=== PATIENT | male | born 1945 | race Two or more races ===

== ENCOUNTER 2019-09-04 16:56 | Inpatient (IN) | payer OTHER, MEDICAID ==
--- NOTE | 2019-09-03 22:00 | NUR ---
RN NOTES ADMITTED A PATIENT FROM ER AOX2 IN ROOM AIR. SATURATION 98%. AFEBRILE. PT NODS MOST OF THE QUESTION DIAGNOSED WITH DKA. TELE MONITOR PLACED WITH SR W BBB AND PVC'S. RECEIVED WITH INSULIN DRIP RUNNING @ 8 U/HR TITRATED ORDERED. SKIN CHECKED DONE NOTED WITH COLD AND MOTTLED SKIN. IV SITE ON RIGHT HAND G 22. BLAZE G 18 RUNNING W/ INSULIN AND NS @ 125 ML/HR ALL INTACT AND PATENT. KEPT PT CLEAN AND DRY. CALL LIGHT INSTRUCTION PROVIDED DEMONSTRATED UNDERSTANDING. WILL CONT. TO MONITOR.
[~2019-09-04] VITALS: Ht 170.2 cm; Wt 97.1 kg
[~2019-09-04 16:56] MED LIST: DOXA8TAB2 PO; GLIP10TA3 PO; LISI-603 PO; METF-441 PO; SIMV20TA2 PO
--- NOTE | 2019-09-04 16:56 | NUR ---
PT BIBRA FROM HOME C/O HIGH BLOOD SUGAR MORE THAN 500MG/DL, PT IS AAOX1, NOT IN RESPIRATORY DISTRESS, HOOKED TO HIDE INSPECTOR, KEPT RESTED AND COMFORTABLE, WILL CONTINUE TO MONITOR.
--- NOTE | 2019-09-04 17:05 | NUR ---
SEEN AND EXAMINED BY .
--- NOTE | 2019-09-04 17:10 | NUR ---
RT AT BEDSIDE FOR ABG.
[2019-09-04 17:21] LABS: ABG BASE EXCESS -22.7 mmol/L; ABG OXYGEN SATURATION 96.9 % (92.0-98.5); ABG PCO2 15.5 mmHg (35.0-45.0); ABG PH 7.094 (7.350-7.450); ABG PO2 114.5 mmHg (75.0-100.0); AaDO2 16.7 mmHg; COHb 0.3 % (0.5-1.5); MetHb 0.6 % (0.0-1.5); SITE, ABG Left Radial; VENT MODE, BG ROOM AIR
[2019-09-04] MEDS ORDERED: IV NS 0.9% 1,000 ML BAG IV ONE ×2 (17:30→18:30)
--- NOTE | 2019-09-04 17:38 | NUR ---
PAGED [facility].
--- NOTE | 2019-09-04 17:45 | NUR ---
MICHELLE MCKEON ESTABLISHED, BLOOD DRAWN AND SENT TO LAB.
[2019-09-04 17:53] LABS: BASOPHILS # (AUTO) 0.2 /CMM (0.0-0.2); BASOPHILS % (AUTO) 1.3 % (0.0-2.0); EOSINOPHILS % (AUTO) 0.2 % (0.0-6.0); HEMATOCRIT 58 % (39-51); HEMOGLOBIN 18.5 g/dL (13.5-17.5); LYMPHOCYTES # (AUTO) 0.5 /CMM (0.8-4.8); LYMPHOCYTES % (AUTO) 3.5 % (20.0-44.0); MEAN CORPUSCULAR HGB CONC 32 g/dl (31.0-36.0); MEAN CORPUSCULAR VOLUME 96 fL (80-96); MONOCYTES # (AUTO) 0.8 /CMM (0.1-1.30); MONOCYTES % (AUTO) 6.3 % (2.0-12.0); NEUTROPHILS # (AUTO) 11.6 /CMM (1.8-8.9); NEUTROPHILS % (AUTO) 88.7 % (43.0-81.0); PLATELET COUNT (AUTO) 274 /CMM (150-450); RED BLOOD CELL COUNT(AUTO) 6.05 MIL/uL (4.5-6.0); WHITE BLOOD COUNT (AUTO) 13.1 K/uL (4.3-11.0)
[2019-09-04 18:11] LABS: ALANINE AMINOTRANSFERASE 50 U/L (12-78); ALBUMIN 4.4 g/dL (3.4-5.0); ALKALINE PHOSPHATASE 111 U/L (46-116); ASPARTATE AMINOTRANSFERASE 15 U/L (15-37); BILIRUBIN,DIRECT 0.4 mg/dL (0.0-0.2); BILIRUBIN,TOTAL 1.1 mg/dL (0.2-1.0); CALCIUM, SERUM 9.3 mg/dL (8.5-10.1); CHLORIDE 95 mmol/L (98-107); CREATININE 2.2 mg/dL (0.6-1.3); POTASSIUM 5.1 mmol/L (3.5-5.1); SODIUM SERUM 134 mmol/L (136-145); UREA NITROGEN, BLOOD 56 mg/dL (7-18)
[2019-09-04 18:16] LABS: ACETAMINOPHEN 0 ug/ml (10-30); CARBON DIOXIDE 8 mmol/L (21-32); GLUCOSE 735 mg/dL (74-106); SALICYLATE 2.6 mg/dL (2.8-20.0)
[2019-09-04 18:17] LABS: ALCOHOL, BLOOD < 3 mg/dL (0-0)
[2019-09-04 18:19] LABS: SERUM AMMONIA 35 umol/L (11-32)
--- NOTE | 2019-09-04 18:19 | NUR ---
CALLED NURSING SUP FOR ICU BED.
[2019-09-04] MEDS ORDERED: INSULIN REGULAR, HUMAN 100 UNIT in IV NS 0.9% 99 ML IV PRN ×4 (18:30→19:00)
[2019-09-04 18:32] LABS: THYROID STIMULATING HORMONE 1.262 uIU/mL (0.358-3.74)
[2019-09-04] MEDS ORDERED: INSULIN REGULAR, HUMAN 100 UNIT/ML 10 ML VIAL ONE (18:32)
[2019-09-04] MEDS ORDERED: IV NS 0.9% 1,000 ML IV PRN ×3 (18:54→19:00)
[2019-09-04 18:57] LABS: APPEARANCE,URINE Clear (CLEAR); BILIRUBIN,URINE SMALL (NEGATIVE); BLOOD, URINE Small Ery/uL (NEGATIVE); COLOR,URINE Yellow (YELLOW); KETONES,URINE 40 (NEGATIVE); LEUKOCYTE ESTERASE ,URINE Negative (NEGATIVE); NITRITE, URINE Negative (NEGATIVE); PH,URINE 5.5 (5.0-8.0); PROTEIN,URINE 30 mg/dl (NEGATIVE); UGLUCOSE 500 MG/DL mg/dL (NEGATIVE); UROBILINOGEN,URINE 0.2 EU/dL (0.2)
[2019-09-04] MEDS ORDERED: ONDANSETRON HCL/PF 4 MG/2 ML VIAL IVP PRN (19:00)
[2019-09-04] MEDS ORDERED: ACETAMINOPHEN 325 MG TABLET PO PRN (19:00)
[2019-09-04] MEDS ORDERED: Z GUARD REMEDY 2 OZ OINT TP PRN (19:00)
[2019-09-04] MEDS ORDERED: MAGNESIUM HYDROXIDE 30 ML UDC PO PRN (19:00)
[2019-09-04] MEDS ORDERED: MAG HYDROX/AL HYDROX/SIMETH 30 ML UDC PO PRN (19:00)
[2019-09-04 19:13] LABS: BACTERIA,URINE Few /HPF (None Seen); SQUAMOUS EPITHELIAL CELL,UR Few /HPF (None Seen); URINE AMORPHOUS URATE Moderate /HPF (None Seen); WBC,URINE 0-2 /HPF (0-3)
--- NOTE | 2019-09-04 19:16 | NUR ---
ACCUCHECK DONE, >600, MADE DR PIMENTEL AWARE
[2019-09-04 19:26] LABS: BAND % (MANUAL) 1 % (0.0-5.0); LYMPHOCYTES % (MANUAL) 6 % (16-48); MONOCYTES % (MANUAL) 5 % (0-11.0); NEUTROPHILS % (MANUAL) 88 (42-76)
[2019-09-04] MEDS ORDERED: PIPERACILLIN /TAZOBACTAM 3.375 G in IV D5W 50 ML IV ONE ×4 (20:00)
--- NOTE | 2019-09-04 20:36 | NUR ---
REPORT GIVEN TO RADHA KLEIN FOR LARS.
[2019-09-04] MEDS ORDERED: PIPERACILLIN /TAZOBACTAM 3.375 G VIAL IV ONE (20:40)
[2019-09-04 21:10] VITALS: BP 165/98
[2019-09-04 21:30] VITALS: BP 179/70
[2019-09-04 22:00] VITALS: BP 163/77
[2019-09-04] MEDS: IV NS 0.9% 1,000 ML IV SCH (22:23)
[2019-09-04 22:30] VITALS: BP 150/76
[2019-09-04] MEDS: INSULIN REGULAR, HUMAN 100 UNIT in IV NS 0.9% 99 ML IV PRN ×2 (22:37)
[2019-09-04 23:00] VITALS: BP 153/80
[2019-09-04 23:30] VITALS: BP 153/80
[2019-09-04] MEDS: BLOOD SUGAR DIAGNOSTIC 1 EACH STRIP IN SCH (23:33)
[2019-09-04 23:59] LABS: CALCIUM, SERUM 8.3 mg/dL (8.5-10.1); CARBON DIOXIDE 12 mmol/L (21-32); CHLORIDE 105 mmol/L (98-107); SODIUM SERUM 142 mmol/L (136-145); UREA NITROGEN, BLOOD 55 mg/dL (7-18)
[2019-09-05] VITALS (33 sets, daily range): BP systolic 121–175; BP diastolic 55–137
[2019-09-05 00:02] LABS: GLUCOSE 436 mg/dL (74-106)
[2019-09-05] MEDS: BLOOD SUGAR DIAGNOSTIC 1 EACH STRIP IN SCH ×24 (00:18→23:09)
[2019-09-05] MEDS ORDERED: INSULIN REGULAR, HUMAN 100 UNIT/ML 3 ML VIAL ONE (00:25)
[2019-09-05 01:39] LABS: CALCIUM, SERUM 7.9 mg/dL (8.5-10.1); CARBON DIOXIDE 12 mmol/L (21-32); CHLORIDE 111 mmol/L (98-107); CREATININE 1.7 mg/dL (0.6-1.3); GLUCOSE 302 mg/dL (74-106); POTASSIUM 4.3 mmol/L (3.5-5.1); SODIUM SERUM 146 mmol/L (136-145); UREA NITROGEN, BLOOD 50 mg/dL (7-18)
[2019-09-05 05:13] LABS: BASOPHILS % (AUTO) 0.1 % (0.0-2.0); HEMATOCRIT 49 % (39-51); HEMOGLOBIN 16.1 g/dL (13.5-17.5); LYMPHOCYTES # (AUTO) 0.4 /CMM (0.8-4.8); LYMPHOCYTES % (AUTO) 3.9 % (20.0-44.0); MEAN CORPUSCULAR HGB CONC 33 g/dl (31.0-36.0); MEAN CORPUSCULAR VOLUME 91 fL (80-96); MONOCYTES # (AUTO) 1.1 /CMM (0.1-1.30); MONOCYTES % (AUTO) 9.6 % (2.0-12.0); NEUTROPHILS # (AUTO) 9.7 /CMM (1.8-8.9); NEUTROPHILS % (AUTO) 86.4 % (43.0-81.0); PLATELET COUNT (AUTO) 190 /CMM (150-450); RED BLOOD CELL COUNT(AUTO) 5.35 MIL/uL (4.5-6.0); WHITE BLOOD COUNT (AUTO) 11.2 K/uL (4.3-11.0)
[2019-09-05 05:34] LABS: CARBON DIOXIDE 19 mmol/L (21-32); CHLORIDE 113 mmol/L (98-107); CREATININE 1.6 mg/dL (0.6-1.3); GLUCOSE 246 mg/dL (74-106); MAGNESIUM 2.9 mg/dL (1.8-2.4); PHOSPHORUS 1.3 mg/dL (2.5-4.9); POTASSIUM 4.3 mmol/L (3.5-5.1); SODIUM SERUM 148 mmol/L (136-145); UREA NITROGEN, BLOOD 43 mg/dL (7-18)
[2019-09-05 05:44] LABS: CHOLESTEROL 276 mg/dL (<200); HDL CHOLESTEROL 35 mg/dL (40-60); LDL 172 mg/dL (0-99); TRIGLYCERIDES 341 mg/dL (30-150)
[2019-09-05] MEDS: IV NS 0.9% 1,000 ML IV SCH ×2 (06:05→13:21)
[2019-09-05] MEDS: INSULIN REGULAR, HUMAN 100 UNIT in IV NS 0.9% 99 ML IV PRN ×2 (06:26)
--- NOTE | 2019-09-05 07:10 | NUR ---
RN NOTES PT ASLEEP WELL MORE ALERT THAN LAST NIGHT. NO SOB OR RESP DISTRESS. AFEBRILE. VSS WITHOUT PRESSOR. CONTINUE MONITOR BS Q1H INSULIN DRIP TITRATED ORDERED. NO SIGNIFICANT CHANGE OF CONDITION THROUGHOUT THE SHIFT. WILL ENDORSED CONTINUITY OF CARE.
--- NOTE | 2019-09-05 08:00 | NUR ---
ICU/RN AM SHIFT OPENING NOTES Received pt awake in bed, patient A/O x 2, Serbian and Uzbek, denies any symptoms, no s/s of hyperglycemia. On room air saturating @ 99%, respirations even & unlabored, lung sounds clear. On tele monitoring, SR with BBB with occasional PVCs, HR 96. Pt with on going insulin drip @ 4 units/hr and NS @ 125cc/hr, IV site, flushed patent, no S/S of infection. De La Torre catheter intact with yellow urine output. Pt is comfortable, plan of care explained to patient, verbalized understanding. CL within reached and safety maintained. On going monitoring.
--- NOTE | 2019-09-05 12:00 | NUR ---
ICU/RN NOON ROUNDS NO CHANGE OF CONDITION. MONITORING CONTINUED.
[2019-09-05] MEDS ORDERED: NEUTRA PHOS 1 POWD.PACKET PO ONE (14:00)
--- NOTE | 2019-09-05 19:00 | NUR ---
ICU/RN AM SHIFT CLOSING NOTES ALL NEEDS MET. NO ACUTE CHANGE OF CONDITION. CONTINUING INSULIN DRIP, AT 4U/HR. PT ENDORSED TO PM NURSE TO CONTINUE CARE. CL WITHIN REACHED AND SAFETY MAINTAINED.
--- NOTE | 2019-09-05 19:40 | NUR ---
RN NOTES PATIENT VOMITED BEFORE CHANGE OF SHIFT. NURSE AT BEDSIDE, PER PREVIOUS SHIFT PATIENT DRINK A LOT OF FLUIDS. PT IS AOX 2 WITH LETHARGY. AFEBRILE. SR WITH BBB AND OCCASIONAL PVC'S. NO ACUTE RESPIRATORY DISTRESS. IV SITE ON DENISE MIDLINE RUNNING WITH INSULIN DRIP @ 5 U/HR TITRATED ORDERED 1.2 NS @ 100 ML /HR STARTED ORDERED/ PATIENT HAS BATES CATH OFF FROM THE FLOOR WITH YELLOW CLOUDY URINE. CALL LIGHT KETP WITHIN EASY REACH. TURNED AND REPOSITIONED FOR SKIN SAFETY. WILL CONTINUE TO MONITOR.
[2019-09-05] MEDS: IV 1/2NS 1000 ML 1,000 ML IV PRN (20:27)
[2019-09-05] MEDS ORDERED: FUROSEMIDE 20 MG/2 ML VIAL IV ONE (20:30)
[2019-09-06] VITALS (14 sets, daily range): BP systolic 126–162; BP diastolic 54–76
[2019-09-06] MEDS: BLOOD SUGAR DIAGNOSTIC 1 EACH STRIP IN SCH ×8 (00:07→21:36)
[2019-09-06 00:21] LABS: CARBON DIOXIDE 24 mmol/L (21-32); CHLORIDE 113 mmol/L (98-107); CREATININE 1.2 mg/dL (0.6-1.3); GLUCOSE 223 mg/dL (74-106); MAGNESIUM 2.6 mg/dL (1.8-2.4); PHOSPHORUS 1.9 mg/dL (2.5-4.9); POTASSIUM 3.1 mmol/L (3.5-5.1); SODIUM SERUM 149 mmol/L (136-145); UREA NITROGEN, BLOOD 23 mg/dL (7-18)
[2019-09-06] MEDS ORDERED: POTASSIUM CHLORIDE 20 MEQ TAB.PRT.SR PO ONE (01:00)
[2019-09-06] MEDS ORDERED: INSULIN GLARGINE, 100 UNIT/ML CARTRIDGE SQ SCH (01:00)
[2019-09-06] MEDS ORDERED: DEXTROSE 50%-WATER 50 ML DISP.SYRIN IV PRN (01:00)
[2019-09-06] MEDS ORDERED: K PHOS NEUTRAL 250 MG TABLET PO ONE (01:00)
[2019-09-06] MEDS ORDERED: INSULIN GLARGINE, 100 UNIT/ML CARTRIDGE SQ ONE ×2 (01:32→08:00)
[2019-09-06] MEDS ORDERED: INSULIN REGULAR, HUMAN 100 UNIT/ML 3 ML VIAL ONE (01:33)
[2019-09-06] MEDS: INSULIN REGULAR, HUMAN 100 UNIT/ML 3 ML VIAL SQ PRN ×5 (02:19→21:41)
[2019-09-06 05:18] LABS: CALCIUM, SERUM 7.7 mg/dL (8.5-10.1); CREATININE 1.1 mg/dL (0.6-1.3); PHOSPHORUS 2.6 mg/dL (2.5-4.9); POTASSIUM 3.7 mmol/L (3.5-5.1)
[2019-09-06] MEDS: IV 1/2NS 1000 ML 1,000 ML IV PRN ×2 (05:37→15:45)
--- NOTE | 2019-09-06 06:50 | NUR ---
RN NOTES PT REMAINED STABLE. NO SIGNIFICANT CHANGES THROUGHOUT THE SHIFT. AFEBRILE. SR ON TELE MONITOR. VSS. INCONTINENT CARE RENDERED. CONTINUE TO MONITOR BLOOD SUGAR ORDERED. INSULIN PER SLIDING SCALE ADMINISTERED ORDERED. KEPT PT CLEAN AND DRY. ALL DUE MEDICINE TOLERATED WELL. WILL ENDORSED CONTINUITY OF CARE TO AM NURSE.
--- NOTE | 2019-09-06 07:20 | NUR ---
ICU/RN NOTES RECEIVED PATIENT IN BED AWAKE, ALERT AND ABLE TO MAKE NEEDS KNOWN. NO PAIN OR ACUTE DISTRESS AT THIS TIME. RESPIRATION EVEN AND UNLABORED. SKIN IS DRY WARM TO TOUCH. IV ACCESS INTACT AN PATENT. FLUSHING WELL. NO S/S OF INFECTION OR INFILTRATION. ALL NEEDS ANTICIPATED. CALL LIGHT WITHIN REACHED. BED LOCKED AND IN LOWEST POSITION. SAFETY MAINTAINED. WILL CONTINUE TO MONITOR CLOSELY.
--- NOTE | 2019-09-06 07:59 | NUR ---
WOUND CARE CONSULT: PT PRESENTS WITH BILATERAL LOWER LEG REDNESS WITH LESIONS/DISCOLORATION TO LOWER LEGS, PRESENT ON ADMISSION. RECOMMEND DPM CONSULT. DR OSUNA NOTIFIED OF CONSULT REQUEST. RECOMMENDATIONS MADE FOR SKIN PROTECTION AND DISCUSSED WITH NURSING STAFF. JANA ARAYA NOTED. WILL SEE PRN. CURRENT CHIRAG SCORE IS 14. Addendum: 09/06/19 at 0801 by ANJUM GALICIA WNDNU Amended: Links added.
[2019-09-06 08:54] LABS: CALCIUM, SERUM 7.8 mg/dL (8.5-10.1); CREATININE 1.2 mg/dL (0.6-1.3); POTASSIUM 3.7 mmol/L (3.5-5.1)
[2019-09-06] MEDS: AMLODIPINE BESYLATE 5 MG TABLET PO SCH (11:02)
[2019-09-06 12:45] LABS: CALCIUM, SERUM 7.9 mg/dL (8.5-10.1); POTASSIUM 3.4 mmol/L (3.5-5.1)
[2019-09-06 16:56] LABS: CALCIUM, SERUM 8.6 mg/dL (8.5-10.1); POTASSIUM 3.3 mmol/L (3.5-5.1)
--- NOTE | 2019-09-06 18:47 | NUR ---
MS/RN CLOSING NOTES PATIENT CONTINUES TO REMAIN IN STABLE CONDITION THROUGHOUT THE SHIFT. PROVIDED COMFORT AND SAFETY. PATIENT ABLE TO TOLERATE MEALS AND MEDS WELL. NO ACUTE DISTRESS AT THIS TIME. RESPIRATION EVEN AND UNLABORED. SKIN IS DRY WARM TO TOUCH. ALL NEEDS ANTICIPATED. CALL LIGHT WITHIN REACHED. BED LOCKED AND IN LOWEST POSITION. SAFETY MAINTAINED. WILL CONTINUE TO MONITOR CLOSELY. ENDORSED TO PM NURSE FOR LARS.
--- NOTE | 2019-09-06 19:20 | NUR ---
MS RN: RECEIVED PATIENT Patient stood up at bedside, appears confused. Reoriented and assisted back to bed. Japanese speaking, speaks and understand some Nepalese. Reminders to use call light for assistance, verbalized understanding. IVF infusing, De La Torre cath to gravity. Fall precaution maintained.
--- NOTE | 2019-09-06 21:15 | NUR ---
MS RN: BP Elevated BP 162/65, patient denies headache, no c/o pain. Notified Dr. Melendez with no new orders at this time. Will cont to monitor patient, fall precaution maintained.
[2019-09-06] MEDS: HEPARIN SODIUM, PORCINE 5000 UNITS/1 ML VIAL SQ SCH (21:33)
[2019-09-06 22:47] LABS: CALCIUM, SERUM 8.1 mg/dL (8.5-10.1); CREATININE 0.9 mg/dL (0.6-1.3); POTASSIUM 3.4 mmol/L (3.5-5.1)
[2019-09-07] MEDS ORDERED: POTASSIUM CHLORIDE 20 MEQ TAB.PRT.SR PO ONE ×2 (00:30→09:00)
[2019-09-07] MEDS: BLOOD SUGAR DIAGNOSTIC 1 EACH STRIP IN SCH ×6 (01:40→21:52)
[2019-09-07] MEDS: INSULIN REGULAR, HUMAN 100 UNIT/ML 3 ML VIAL SQ PRN ×6 (01:43→21:48)
--- NOTE | 2019-09-07 03:07 | NUR ---
MS RN: BLOOD IN THE URINE De La Torre cath to gravity, blood in the urine with clots. Patient denies pain. H/H 16. Plt. [address] Melendez with new order CBC in am.
[2019-09-07] MEDS: IV 1/2NS 1000 ML 1,000 ML IV PRN (03:55)
[2019-09-07 04:00] VITALS: BP 135/73
--- NOTE | 2019-09-07 06:11 | NUR ---
MS RN: END OF SHIFT REPORT Patient in bed, stable on room air. IVF infusing, good appetite. Had BM this shift, zaman cath to gravity, bag off the floor. Hematuria, is aware. CBC today. Accu check q4H with insulin SS. Fall precaution maintained.
[2019-09-07 06:46] LABS: BASOPHILS % (AUTO) 0.4 % (0.0-2.0); EOSINOPHILS % (AUTO) 1.1 % (0.0-6.0); HEMATOCRIT 41 % (39-51); HEMOGLOBIN 13.9 g/dL (13.5-17.5); LYMPHOCYTES % (AUTO) 20.5 % (20.0-44.0); MEAN CORPUSCULAR HGB CONC 34 g/dl (31.0-36.0); MEAN CORPUSCULAR VOLUME 90 fL (80-96); MONOCYTES # (AUTO) 0.5 /CMM (0.1-1.30); MONOCYTES % (AUTO) 11.1 % (2.0-12.0); NEUTROPHILS # (AUTO) 3.3 /CMM (1.8-8.9); NEUTROPHILS % (AUTO) 66.9 % (43.0-81.0); PLATELET COUNT (AUTO) 98 /CMM (150-450); RED BLOOD CELL COUNT(AUTO) 4.57 MIL/uL (4.5-6.0); WHITE BLOOD COUNT (AUTO) 4.9 K/uL (4.3-11.0)
[2019-09-07 07:16] LABS: EOSINOPHILS % (MANUAL) 2 % (0-4); LYMPHOCYTES % (MANUAL) 20 % (16-48); MONOCYTES % (MANUAL) 6 % (0-11.0); NEUTROPHILS % (MANUAL) 72 (42-76)
--- NOTE | 2019-09-07 07:30 | NUR ---
RN OPENING NOTE: RECEIVED PATIENT IN BED THIS MORNING. PATIENT IS ALERT X1, CONFUSED. SAMI SPEAKING BUT UNDERSTANDS CITIZEN OF [place] AND ABLE TO RESPOND. NO SIGNS OF RESPIRATORY DISTRESS NOTED. NO ACUTE DISTRESS NOTED. DENISE MIDLINE, #22 L HAND #18 BLAZE, FLUSHES WELL, C/D/I, NO SIGNS OF COMPLICATIONS NOTED. BATES, DRAINING WELL, BLOOD TINGE NOTED. PATIENT AMBULATORY WITH ASSIST. NO C/O PAIN. SAFETY MEASURES IMPLEMENTED, BED IN LOWEST POSITION, LOCKED, SIDE RAILS UP X3, CALL LIGHT WITHIN REACH. WILL CONTINUE TO MONITOR PATIENT FOR CHANGES.
[2019-09-07 08:00] VITALS: BP 142/73
[2019-09-07] MEDS: HEPARIN SODIUM, PORCINE 5000 UNITS/1 ML VIAL SQ SCH ×2 (08:32→21:46)
[2019-09-07] MEDS: AMLODIPINE BESYLATE 5 MG TABLET PO SCH (08:33)
[2019-09-07] MEDS: SILVER SULFADIAZINE CREAM 25 GM TUBE TP SCH (08:59)
--- NOTE | 2019-09-07 09:39 | NUR ---
CONTACTED FOR OVER THE PHONE CONSENT FOR CTA BRAIN, NO RESPONSE, LEFT VM, AWAITING CALL BACK Addendum: 09/07/19 at 1259 by JESSI LEHMAN RN OVER THE PHONE CONSENT RECEIVED FROM SISTER (COSME HALE) [phone], SECOND WITNESS FOR VERIFICATION, ERNIE VU.
--- NOTE | 2019-09-07 15:18 | NUR ---
PATIENT CONFUSED UNABLE TO USE CALL LIGHT,FORGETFUL,FALL RISK ,DR. MITCHELL NOTIFIED OBTAINED ORDER FOR SITTER,NURSING SUP MADE AWARE.
[2019-09-07 16:00] VITALS: BP 147/72
[2019-09-07] MEDS ORDERED: IV NS 0.9% 250 ML IV ONE (18:20)
[2019-09-07] MEDS ORDERED: IOHEXOL-350 100 ML VIAL IV ONE (18:20)
--- NOTE | 2019-09-07 19:15 | NUR ---
MS RN OPENING NOTE RECEIVED REPORT ON PATIENT, PATIENT NOT IN ROOM AT THE MOMENT PATIENT CURRENTLY GETTING CT.
--- NOTE | 2019-09-07 19:28 | NUR ---
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 READ BACK AND NOTED. WILL CALL PRIMARY MD.
--- NOTE | 2019-09-07 19:30 | NUR ---
MS RN OPENING NOTE RECEIVED PATIENT IN BED. A/O X1, PER REPORT PATIENT IS CONFUSED. TOLERATING ROOM AIR. RESPIRATIONS ARE EVEN AND UNLABORED. NO S/S SOB NOTED. DENIES PAIN AT THIS TIME. IN NO APPARENT DISTRESS. IV ACCESS IN DENISE MIDLINE, BLAZE #18, AND RIGHT HAND #22 ALL PATENT AN DSALINE LOCKED. PATIENT HAS A 1:1 SITTER AT BEDSIDE. BATES CATHETER IS PRESENT, DRAINING TO GAVITY, URINE IS YELLOW AND CLEAR. BED IS LOW AN DLOCKED, HOB IN SEMI FOWLERS, SIDE RAILS UP X2, BED ALARM ON. WILL CONTINUE TO MONITOR.
--- NOTE | 2019-09-07 19:50 | NUR ---
MS RN NOTE CALLED DR. DE GUZMAN OFFICE TO REPORT A CRITICAL FINDING IN THE CT. AWAITING CALL BACK.
--- NOTE | 2019-09-07 19:57 | NUR ---
MS RN NOTE DR. MITCHELL RETURNED CALLED. NO VERBAL ORDERS AT THIS TIME.
[2019-09-07 20:00] VITALS: BP 143/75
--- NOTE | 2019-09-07 20:20 | NUR ---
MS RN NOTE RADIOLOGY CALLED ABOUT A STAT ORDER DR. MITCHELL PLACED. CALLED DR. MITCHELL FOR CONFIRMATION. HE WOULD LIKE TO GET A CT OF THE HEAT AND MISTAKEN PUT CTA. WILL CALL RADIOLOGY TO INFORM THEM.
--- NOTE | 2019-09-07 20:29 | NUR ---
RN CLOSING NOTE: GAVE REPORT TO SANITARY LANDFILL SUPERVISOR RN FOR CONTINUITY OF CARE. PATIENT WAS NOT IN THE ROOM AT THE MOMENT D/T BEING SENT OUT FOR CT OF BRAIN. ONCE PATIENT GETS BACK TO UNIT, NURSE WILL CONTINUE CARE.
--- NOTE | 2019-09-07 21:08 | NUR ---
MS RN NOTE MEHREEN FROM RADIOLOGY CAME TO ASK FOR DR. DE GUZMAN NUMBER. OFFERED FOR THE RADIOLOGIST TO SPEAK ABOUT REPORT FOR THE CODE STROKE D/T HEAD CT WITH AND WITHOUT CONTRACT COMPLETED AN HOUR AND A HALF BEFORE ORDERING NEW TEST AND REPORT DOES NOT STATE FINDINGS OF TEST WITHOUT CONTRAST. MEHREEN CONFIRMED WITH ME THAT DR. MITCHELL AND RADIOLOGIST SPOKE AND DR. MITCHELL WOULD LIKE TO CANCEL THE ORDER. MEHREEN STATED SHE WILL DC ORDER.
--- NOTE | 2019-09-07 21:20 | NUR ---
MS RN NOTE SPOKE WITH PATIENT S SISTER JANES. SHE WANTED AN UPDATE AND INFORMATION ABOUT CTA HEAD.
[2019-09-08] MEDS: BLOOD SUGAR DIAGNOSTIC 1 EACH STRIP IN SCH ×4 (00:29→13:32)
[2019-09-08] MEDS: INSULIN REGULAR, HUMAN 100 UNIT/ML 3 ML VIAL SQ PRN ×3 (00:33→13:35)
--- NOTE | 2019-09-08 04:36 | NUR ---
MS RN NOTE RECEIVED CRITICAL LAB FROM PAULINE FOR BLOOD CULTURE SHOWING YEAST CELLS. WILL CALL
--- NOTE | 2019-09-08 04:44 | NUR ---
MS RN NOTE CALLED [facility] TO REACH MD. AWAITING HIS CALL.
--- NOTE | 2019-09-08 04:55 | NUR ---
MS RN NOTE SPOKE WITH DR. TYE BEARD. REPORTED CRITICAL LAB FOR BLOOS CULTURE SHOWING YEAST CELLS, PATIENT IS NOT ON ANTIBIOTICS. DR ASKED IF THE PATIENT CURRENTLY HAS TEMPERATURE AND HIGH WBC. PATIENT DOES NOT HAVE A TEMPERATURE AND WBC IS 4.9. MD ORDERED TO ENDORSE TO AM MD TO HANDLE, ORDER READ BACK, NOTED, WILL CARRY OUT.
--- NOTE | 2019-09-08 06:04 | NUR ---
MS RN CLOSING NOTE PATIENT IN BED. A/O X1, HAS EPISODES OF CONFUSION. TOLERATING ROOM AIR. RESPIRATIONS ARE EVEN AND UNLABORED. NO SOB NOTED. NO C/O PAIN THROUGHOUT SHIFT. NO DISTRESS NOTED. IV ACCESS MAINTAINED IN DENISE MIDLINE, BLAZE #18, AND RIGHT HAND #22 ALL PATENT AND SALINE LOCKED. 1:1 SITTER REMAINS AT BEDSIDE. BATES CATHETER IS MAINTAINED, DRAINING TO GRAVITY, URINE IS YELLOW AND CLEAR, OUTPUT 2500ML. NEURO CHECK CONDUCTED, PATIENT IS A/O X2, ABLE TO MOVE EXTREMITIES WELL. BED IS LOW AND LOCKED, HOB IN SEMI FOWLERS, SIDE RAILS UP X2, BED ALARM ON. WILL ENDORSE TO NEXT SHIFT.
--- NOTE | 2019-09-08 07:10 | NUR ---
RN OPENING NOTE: RECEIVED PATIENT IN BED THIS MORNING. PATIENT IS ALERT X1, CONFUSED. SETS[place]NA SPEAKING BUT UNDERSTANDS [place] AND ABLE TO RESPOND. NO SIGNS OF RESPIRATORY DISTRESS NOTED. NO ACUTE DISTRESS NOTED. DENISE MIDLINE, #22 L HAND #18 BLAZE, FLUSHES WELL, C/D/I, NO SIGNS OF COMPLICATIONS NOTED. BATES, DRAINING WELL, BLOOD TINGE NOTED. PATIENT AMBULATORY WITH ASSIST. NO C/O PAIN. PATIENT IS ON 1:1. SAFETY MEASURES IMPLEMENTED, BED IN LOWEST POSITION, LOCKED, SIDE RAILS UP X3, CALL LIGHT WITHIN REACH. WILL CONTINUE TO MONITOR PATIENT FOR CHANGES.
[2019-09-08 07:11] LABS: BASOPHILS % (AUTO) 0.5 % (0.0-2.0); EOSINOPHILS % (AUTO) 3.8 % (0.0-6.0); HEMATOCRIT 42 % (39-51); HEMOGLOBIN 14.1 g/dL (13.5-17.5); LYMPHOCYTES # (AUTO) 0.9 /CMM (0.8-4.8); LYMPHOCYTES % (AUTO) 21.4 % (20.0-44.0); MEAN CORPUSCULAR HGB CONC 34 g/dl (31.0-36.0); MEAN CORPUSCULAR VOLUME 90 fL (80-96); MONOCYTES # (AUTO) 0.5 /CMM (0.1-1.30); MONOCYTES % (AUTO) 10.3 % (2.0-12.0); NEUTROPHILS # (AUTO) 2.8 /CMM (1.8-8.9); PLATELET COUNT (AUTO) 102 /CMM (150-450); RED BLOOD CELL COUNT(AUTO) 4.68 MIL/uL (4.5-6.0); WHITE BLOOD COUNT (AUTO) 4.4 K/uL (4.3-11.0)
[2019-09-08 08:00] VITALS: BP 130/65
[2019-09-08 08:00] LABS: CALCIUM, SERUM 8.3 mg/dL (8.5-10.1); CARBON DIOXIDE 33 mmol/L (21-32); CHLORIDE 102 mmol/L (98-107); CREATININE 0.8 mg/dL (0.6-1.3); GLUCOSE 142 mg/dL (74-106); SODIUM SERUM 141 mmol/L (136-145); UREA NITROGEN, BLOOD 8 mg/dL (7-18)
[2019-09-08 08:16] LABS: POTASSIUM 2.8 mmol/L (3.5-5.1)
[2019-09-08] MEDS ORDERED: AMLODIPINE BESYLATE 5 MG TABLET PO SCH (09:00)
[2019-09-08] MEDS ORDERED: POTASSIUM CHLORIDE 20 MEQ TAB.PRT.SR PO ONE (09:00)
[2019-09-08] MEDS: HEPARIN SODIUM, PORCINE 5000 UNITS/1 ML VIAL SQ SCH (09:20)
[2019-09-08] MEDS: SILVER SULFADIAZINE CREAM 25 GM TUBE TP SCH (09:25)
[2019-09-08] MEDS ORDERED: INSULIN GLARGINE, 100 UNIT/ML CARTRIDGE SQ SCH (09:30)
[2019-09-08] MEDS ORDERED: ASPIRIN EC 81 MG TABLET.DR PO SCH (09:30)
[2019-09-08] MEDS ORDERED: ATOR40TA PO (09:34)
[2019-09-08] MEDS ORDERED: INSU100V7 SQ (09:34)
[2019-09-08] MEDS ORDERED: AMLO5TAB9 PO (09:34)
[2019-09-08] MEDS ORDERED: ASPI-1152 PO (09:34)
[2019-09-08] MEDS ORDERED: INSU100V28 SQ (09:34)
[2019-09-08] MEDS ORDERED: OLANZAPINE 10 MG VIAL IM PRN (15:00)
[2019-09-08 16:47] VITALS: BP 140/78
--- NOTE | 2019-09-08 16:48 | NUR ---
EDUCATION AND TRAINING MANAGER NOTE: PATIENT DC TO [facility] TODAY. PER DC ASSESSMENT. PATIENT IS COOPERATIVE WITH PLAN OF CARE AND MEDICATION MANAGEMENT. NO ACUTE DISTRESS NOTED. NO SIGNS OF RESPIRATORY DISTRESS NOTED. NO COMPLAINTS. GAVE REPORT TO ERNIE TREJO AND WAS INSTRUCTED TO LEAVE IV ON PATIENT IN CASE OF IV ADMINISTRATION. ALSO INFORMED HER OF K+ LABS OF 2.8 AND 80MEQ OF K+ GIVEN PO. BATES CATHETER REMOVED, PATIENT HAS VOIDED. WOUND CARE PICTURES TAKEN AND PLACED IN CHART. PATIENT HAD 1 SHIRT AND 1 PAINTS THAT WE WERE UNABLE TO FIND, CN AWARE, WILL SEND TO PATIENT ONCE LOCATED. PATIENT LEFT [facility].
[2019-09-08] MEDS ORDERED: ATORVASTATIN 40 MG TABLET PO SCH (22:00)
== END 2019-09-08 16:30 | DRG 637 ==
LOC: ER 16:58 → ICU 20:15 → MEDSG1 09-06 10:06
PROVIDERS: ADMIT Nurse Practitioner Acute Care; ATTEND Internal Medicine
PROC: 05H533Z Insertion of Infusion Device into Right Subclavian Vein, Percutaneous Approach (ICD-10-PCS; principal; 2019-09-05)
DX: E11.10 Type 2 diabetes mellitus with ketoacidosis without coma (principal); N17.0 Acute kidney failure with tubular necrosis; G93.41 Metabolic encephalopathy; E87.2 Acidosis; E87.1 Hypo-osmolality and hyponatremia; Z91.14 Patient's other noncompliance with medication regimen; Z91.19 Patient's noncompliance with other medical treatment and regimen; D72.829 Elevated white blood cell count, unspecified; E66.9 Obesity, unspecified; Z68.33 Body mass index [BMI] 33.0-33.9, adult; E11.40 Type 2 diabetes mellitus with diabetic neuropathy, unspecified; S80.821A Blister (nonthermal), right lower leg, initial encounter; X58.XXXA Exposure to other specified factors, initial encounter; Y93.9 Activity, unspecified; Y92.009 Unspecified place in unspecified non-institutional (private) residence as the place of occurrence of the external cause; E86.0 Dehydration; F03.90 Unspecified dementia, unspecified severity, without behavioral disturbance, psychotic disturbance, mood disturbance, and anxiety; N18.9 Chronic kidney disease, unspecified; E11.22 Type 2 diabetes mellitus with diabetic chronic kidney disease; E78.5 Hyperlipidemia, unspecified; Z79.4 Long term (current) use of insulin; Z83.3 Family history of diabetes mellitus; Z86.73 Personal history of transient ischemic attack (TIA), and cerebral infarction without residual deficits; I12.9 Hypertensive chronic kidney disease with stage 1 through stage 4 chronic kidney disease, or unspecified chronic kidney disease
CPT/HCPCS: 36415; 36600; 70496-TC; 71045-TC; 80048-TC; 80061-TC; 80076-TC; 80305; 81000-TC; 82140-TC; 82803-TC; 82947-TC; 82962-TC; 83605-TC; 83735-TC; 84100-TC; 84443-TC; 84484-TC; 85025-TC; 85730-TC; 87040-TC; 87081-TC; 87086-TC; 97110-TC; 97116-TC; 97530-TC; G0378; G0480; J1644; J1815; J1940; J2543; J3490; J7030; J7050; J7060; Q9967

== ENCOUNTER 2019-10-24 18:53 | Inpatient (IN) | payer OTHER ==
[~2019-10-24] VITALS: Ht 167.6 cm; Wt 86.6 kg
[~2019-10-24 18:53] MED LIST changes: +AMLO5TAB9 PO; +ASPI-1152 PO; +ATOR40TA PO; -DOXA8TAB2 PO; -GLIP10TA3 PO; +INSU100V28 SQ; +INSU100V7 SQ; -LISI-603 PO; -METF-441 PO; -SIMV20TA2 PO
--- NOTE | 2019-10-24 19:10 | NUR ---
PT BIBA C/O ALTERED MENTAL STATUS PER REPORT. PT IS UNRESPONSIVE BUT RESPONSIVE TO MECHANICAL STIMULUS, SHALLOW RESPIRATIONS NOTED,SATTING AT 95% ON RA. PT CONNECTED TO THE STAIR BUILDER AND POX
[2019-10-24] MEDS ORDERED: IV NS 0.9% 1,000 ML IV ONE ×2 (19:30→21:00)
--- NOTE | 2019-10-24 19:48 | NUR ---
RT NOTE ABG taken and critical results noted. Dr kaufman notified.
[2019-10-24 19:52] LABS: BASOPHILS # (AUTO) 0.1 /CMM (0.0-0.2); EOSINOPHILS % (AUTO) 0.2 % (0.0-6.0)
[2019-10-24 19:52] LABS: ABG BASE EXCESS -27.3 mmol/L; ABG OXYGEN SATURATION 97.3 % (92.0-98.5); ABG PCO2 13.9 mmHg (35.0-45.0); ABG PH 6.959 (7.350-7.450); ABG PO2 132.5 mmHg (75.0-100.0); AaDO2 0.6 mmHg; COHb 0.3 % (0.5-1.5); MetHb 0.4 % (0.0-1.5); O2Hb 96.6 % (94.0-97.0); SITE, ABG Left Radial; VENT MODE, BG Room Air
[2019-10-24 19:56] LABS: APPEARANCE,URINE Clear (CLEAR); BILIRUBIN,URINE Negative (NEGATIVE); BLOOD, URINE Moderate Ery/uL (NEGATIVE); COLOR,URINE Yellow (YELLOW); KETONES,URINE 80 (NEGATIVE); LEUKOCYTE ESTERASE ,URINE Negative (NEGATIVE); NITRITE, URINE Negative (NEGATIVE); PROTEIN,URINE 100 mg/dl (NEGATIVE); UGLUCOSE 500 MG/DL mg/dL (NEGATIVE); UROBILINOGEN,URINE 0.2 EU/dL (0.2)
--- NOTE | 2019-10-24 19:58 | NUR ---
TREE DEADENER AT BEDSIDE FOR REDRAW
--- NOTE | 2019-10-24 19:58 | NUR ---
MARTINES SWAB SENT TO LAB
[2019-10-24 19:59] LABS: MAGNESIUM 3.5 mg/dL (1.8-2.4)
[2019-10-24 20:00] LABS: ALCOHOL, BLOOD < 3 mg/dL (0-0)
[2019-10-24] MEDS ORDERED: SODIUM BICARBONATE SYR 50 MEQ/50 ML DISP.SYRIN IV ONE (20:00)
--- NOTE | 2019-10-24 20:00 | NUR ---
PT TAKEN TO CT
[2019-10-24] MEDS ORDERED: SODIUM BICARBONATE SYR 50 MEQ/50 ML DISP.SYRIN ONE (20:01)
[2019-10-24 20:07] LABS: BASOPHILS % (AUTO) 0.6 % (0.0-2.0); HEMATOCRIT 56 % (39-51); HEMOGLOBIN 16.9 g/dL (13.5-17.5); LYMPHOCYTES # (AUTO) 1.1 /CMM (0.8-4.8); LYMPHOCYTES % (AUTO) 7.8 % (20.0-44.0); MEAN CORPUSCULAR HGB CONC 30 g/dl (31.0-36.0); MEAN CORPUSCULAR VOLUME 103 fL (80-96); MONOCYTES # (AUTO) 1.4 /CMM (0.1-1.30); MONOCYTES % (AUTO) 9.6 % (2.0-12.0); NEUTROPHILS % (AUTO) 81.8 % (43.0-81.0); PLATELET COUNT (AUTO) 232 /CMM (150-450); RED BLOOD CELL COUNT(AUTO) 5.44 MIL/uL (4.5-6.0); WHITE BLOOD COUNT (AUTO) 14.7 K/uL (4.3-11.0)
[2019-10-24 20:16] LABS: BACTERIA,URINE Few /HPF (None Seen); SQUAMOUS EPITHELIAL CELL,UR Few /HPF (None Seen); URINE AMORPHOUS URATE Moderate /HPF (None Seen); WBC,URINE 0-2 /HPF (0-3)
[2019-10-24 20:32] LABS: CREATINE KINASE, TOTAL 392 U/L (39-308)
[2019-10-24 20:39] LABS: PHOSPHORUS 10.4 mg/dL (2.5-4.9)
[2019-10-24 20:54] LABS: CHLORIDE 91 mmol/L (98-107); SODIUM SERUM 130 mmol/L (136-145)
[2019-10-24] MEDS ORDERED: MEROPENEM 1,000 MG in IV NS 0.9% 100 ML IV ONE (21:00)
[2019-10-24] MEDS ORDERED: VANCOMYCIN 1 GM in IV D5W 250 ML IV ONE (21:00)
[2019-10-24 21:02] LABS: BILIRUBIN,TOTAL 1.1 mg/dL (0.2-1.0); CREATININE 3.1 mg/dL (0.6-1.3); UREA NITROGEN, BLOOD 50 mg/dL (7-18)
[2019-10-24 21:03] LABS: ALKALINE PHOSPHATASE 103 U/L (46-116); ASPARTATE AMINOTRANSFERASE 30 U/L (15-37); BILIRUBIN,DIRECT 0.3 mg/dL (0.0-0.2)
[2019-10-24 21:04] LABS: ALANINE AMINOTRANSFERASE 33 U/L (12-78); ALBUMIN 3.7 g/dL (3.4-5.0); TOTAL PROTEIN, SERUM 7.9 g/dL (6.4-8.2)
[2019-10-24 21:05] LABS: CARBON DIOXIDE 4 mmol/L (21-32); GLUCOSE 1087 mg/dL (74-106); POTASSIUM 6.5 mmol/L (3.5-5.1)
[2019-10-24] MEDS ORDERED: MEROPENEM 1 G VIAL IV ONE (21:16)
[2019-10-24] MEDS ORDERED: VANCOMYCIN 1 GM VIAL ONE ×2 (21:16→21:23)
[2019-10-24 21:25] LABS: CALCIUM, SERUM 8.7 mg/dL (8.5-10.1); CHLORIDE 91 mmol/L (98-107); CREATININE 3.1 mg/dL (0.6-1.3); POTASSIUM 5.5 mmol/L (3.5-5.1); SODIUM SERUM 132 mmol/L (136-145); UREA NITROGEN, BLOOD 51 mg/dL (7-18)
[2019-10-24] MEDS ORDERED: HEPARIN INFUSION/D5W 500 ML IV PRN (21:30)
[2019-10-24] MEDS ORDERED: ASPIRIN 300 MG/SUPP.RECT RC ONE (21:30)
--- NOTE | 2019-10-24 21:35 | NUR ---
ER DOC ON PHONE WITH PAULA
[2019-10-24] MEDS ORDERED: HEPARIN INFUSION/D5W 500 ML IV ONE (21:40)
[2019-10-24 21:41] LABS: CARBON DIOXIDE 7 mmol/L (21-32)
[2019-10-24 21:42] LABS: GLUCOSE 1028 mg/dL (74-106)
--- NOTE | 2019-10-24 21:51 | NUR ---
SPOKE TO ANGELICA RAMIREZ FROM [facility]. CLINICAL INFO GIVEN
--- NOTE | 2019-10-24 22:02 | NUR ---
CALL BACK FOR REPORT
--- NOTE | 2019-10-24 22:20 | NUR ---
Received report from Cristiane
[2019-10-24] MEDS ORDERED: INSULIN REGULAR, HUMAN 100 UNIT in IV NS 0.9% 99 ML IV PRN ×2 (22:30)
[2019-10-24] MEDS ORDERED: ACETAMINOPHEN 650 MG/20.3 ML UDC PO PRN (22:30)
[2019-10-24] MEDS ORDERED: Sodium Bicarbonate 50 MEQ in IV NS 0.9% 1,000 ML IV PRN (22:30)
[2019-10-24] MEDS ORDERED: INSULIN GLARGINE, 100 UNIT/ML CARTRIDGE SQ SCH (22:30)
[2019-10-24] MEDS ORDERED: IV NS 0.9% 1,000 ML IV PRN (22:30)
[2019-10-24] MEDS ORDERED: ONDANSETRON HCL/PF 8 MG in IV D5W 50 ML IV PRN (22:30)
--- NOTE | 2019-10-24 22:50 | NUR ---
PACKAGING TECH INITIAL NOTE: Pt transferred to unit via gurney accompanied by RN and EMT. Transferred to bed, cleaned checked for wounds and completed head to toe assessment. Pt hooked up to medical accountant. Pt unresponsive, but responds to stimuli. IV on RH #22 and LAC #20 patent and flushing. Dressings c/d/i. De La Torre catheter in place draining urine via gravity. Admit dx of DKA. Dr. Luc rawls. Safety measures in place. Will continue to monitor.
--- NOTE | 2019-10-24 22:53 | NUR ---
PT TRANSFERRED TO ICU VIA ACLS PROTOCOL
[2019-10-24 23:00] VITALS: BP 112/59
[2019-10-24] MEDS ORDERED: INSULIN REGULAR, HUMAN 100 UNIT/ML 3 ML VIAL ONE (23:09)
[2019-10-24] MEDS ORDERED: PIPERACILLIN /TAZOBACTAM 2.25 G VIAL IV ONE (23:27)
[2019-10-24 23:30] VITALS: BP 110/57
[2019-10-24] MEDS: BLOOD SUGAR DIAGNOSTIC 1 EACH STRIP IN SCH (23:31)
[2019-10-24] MEDS: PIPERACILLIN /TAZOBACTAM 2.25 G in IV D5W 50 ML IV SCH (23:33)
[2019-10-24] MEDS: FAMOTIDINE/PF INJ 20 MG/2 ML VIAL IV SCH (23:33)
[2019-10-25] VITALS (43 sets, daily range): BP systolic 95–154; BP diastolic 44–72
--- NOTE | 2019-10-25 | NUR ---
Status unchanged,remains unresponsive,still tacypneic and breathing with deep inspiratory effort but not in any distress and saturating 99-100 %.Continue finger stick check q 1 hr,still on Insulin drip Addendum: 10/26/19 at 0154 by SUGAR BRASWELL RN disregard above note ,entererd at wrong time. Should be dated 10/26/19 @ 0000
[2019-10-25] MEDS: BLOOD SUGAR DIAGNOSTIC 1 EACH STRIP IN SCH ×24 (00:16→23:13)
[2019-10-25] MEDS ORDERED: Sodium Bicarbonate 50 MEQ in IV 1/2NS 1000 ML 1,000 ML IV ONE (00:30)
[2019-10-25] MEDS ORDERED: SODIUM BICARBONATE SYR 50 MEQ/50 ML DISP.SYRIN ONE (00:31)
--- NOTE | 2019-10-25 00:43 | NUR ---
On [facility] for low temp 90.0.
[2019-10-25] MEDS ORDERED: Sodium Bicarbonate 50 MEQ in IV 1/2NS 1000 ML 1,000 ML IV PRN ×2 (01:00→10:30)
[2019-10-25] MEDS: INSULIN REGULAR, HUMAN 100 UNIT in IV NS 0.9% 99 ML IV PRN ×6 (01:21→09:21)
[2019-10-25] MEDS: IV NS 0.9% 250 ML IV PRN (01:27)
--- NOTE | 2019-10-25 02:30 | NUR ---
FIELD SERVICE SUPERVISOR NOTE: Mid line placed on BLAZE.
[2019-10-25 02:58] LABS: CHLORIDE 104 mmol/L (98-107); CREATININE 2.5 mg/dL (0.6-1.3); POTASSIUM 3.5 mmol/L (3.5-5.1); SODIUM SERUM 142 mmol/L (136-145); UREA NITROGEN, BLOOD 48 mg/dL (7-18)
[2019-10-25 03:08] LABS: CARBON DIOXIDE 9 mmol/L (21-32)
[2019-10-25 03:09] LABS: GLUCOSE 688 mg/dL (74-106)
[2019-10-25 04:45] LABS: BASOPHILS % (AUTO) 0.2 % (0.0-2.0); EOSINOPHILS % (AUTO) 0.2 % (0.0-6.0); HEMATOCRIT 53 % (39-51); HEMOGLOBIN 17.2 g/dL (13.5-17.5); LYMPHOCYTES # (AUTO) 0.4 /CMM (0.8-4.8); LYMPHOCYTES % (AUTO) 14.5 % (20.0-44.0); MEAN CORPUSCULAR HGB CONC 33 g/dl (31.0-36.0); MEAN CORPUSCULAR VOLUME 95 fL (80-96); MONOCYTES # (AUTO) 0.3 /CMM (0.1-1.30); MONOCYTES % (AUTO) 8.3 % (2.0-12.0); NEUTROPHILS # (AUTO) 2.4 /CMM (1.8-8.9); NEUTROPHILS % (AUTO) 76.8 % (43.0-81.0); PLATELET COUNT (AUTO) 149 /CMM (150-450); RED BLOOD CELL COUNT(AUTO) 5.61 MIL/uL (4.5-6.0); WHITE BLOOD COUNT (AUTO) 3.1 K/uL (4.3-11.0)
[2019-10-25 04:57] LABS: CHLORIDE 105 mmol/L (98-107); CREATININE 2.6 mg/dL (0.6-1.3); POTASSIUM 3.5 mmol/L (3.5-5.1); SODIUM SERUM 144 mmol/L (136-145); UREA NITROGEN, BLOOD 53 mg/dL (7-18)
--- NOTE | 2019-10-25 05:00 | NUR ---
DOCK GUARD NOTE: Removed ashwini. Pt's temp at 98.6
[2019-10-25 05:27] LABS: CARBON DIOXIDE 10 mmol/L (21-32); GLUCOSE 687 mg/dL (74-106)
[2019-10-25] MEDS ORDERED: PIPERACILLIN /TAZOBACTAM 2.25 G VIAL IV ONE (05:38)
[2019-10-25] MEDS: PIPERACILLIN /TAZOBACTAM 2.25 G in IV D5W 50 ML IV SCH ×3 (05:40→17:33)
--- NOTE | 2019-10-25 07:15 | NUR ---
TIMBER DEADENER CLOSING NOTES: Pt resting in bed on RA tolerating well. No SOB or respiratory distress noted. No acute changes noted during shift. BLAZE PICC line, RH and LAC lines patent w/ Bicarb running at 100ml/hr and insulin drip at 20ml/hr. BS trending down. De La Torre cath in place patent and draining urine via gravity. Safety measures in place. Will endorse to AM nurse for LARS.
--- NOTE | 2019-10-25 07:32 | NUR ---
WOUND CARE CONSULT: REVIEWED CHART AND NURSING DOCUMENTATION. RECOMMENDATIONS MADE FOR SKIN PROTECTION. DISCUSSED WITH NURSING STAFF. CURRENT CHIRAG SCORE IS 16. WILL SEE PRN. IN AGREEMENT WITH PLAN OF CARE.
[2019-10-25] MEDS ORDERED: Z GUARD REMEDY 2 OZ OINT TP PRN (08:00)
--- NOTE | 2019-10-25 08:00 | NUR ---
ICU/RN: INITIAL NOTES,AM RECEIVED REPORT FROM NIGHT NURSE. PT LETHARGIC, DOES NOT OBEY COMMANDS, REACTS TO PAINFUL STIMULI. PT ON ROOM AIR, NO ACUTE DISTRESS NOTED. SINUS ON TELE. BATES CATH IN PLACE, DRAINING YELLOW URINE. MIDLINE AND PIV PATENT AND INTACT, NO S/S OF INFECTION OR INFILTRATION NOTED. BICARB INFUSING ORDERED. PT ON INSULIN DRIP, INFUSING PER ALGORITHM 4. ALL NEEDS WILL BE ATTENDED TO, SAFETY MEASURES TAKEN, BED IN LOW POSITION, SIDE RAILS UP, CALL LIGHT WITHIN REACH.
[2019-10-25] MEDS: FAMOTIDINE/PF INJ 20 MG/2 ML VIAL IV SCH (08:22)
[2019-10-25] MEDS: HEPARIN SODIUM, PORCINE 5000 UNITS/1 ML VIAL SQ SCH ×2 (08:35→17:34)
[2019-10-25] MEDS: ASPIRIN EC 81 MG TABLET.DR PO SCH (08:36)
[2019-10-25] MEDS: Z GUARD REMEDY 2 OZ OINT TP SCH (08:39)
--- NOTE | 2019-10-25 08:50 | NUR ---
ICU/RN: AT BEDSIDE. PT ASSESSED. INFORMED MD REGARDING MENTAL STATUS. PER , PT SWITCHED FROM ALGORITHM 4 TO ALGORITHM 2. BMP WILL BE ASSESSED TO MONITOR ANION GAP. ALL NEEDS ATTENDED TO, WILL CONTINUE TO MONITOR
[2019-10-25 08:55] LABS: ABG BASE EXCESS -9.2 mmol/L; ABG OXYGEN SATURATION 95.7 % (92.0-98.5); ABG PCO2 23.3 mmHg (35.0-45.0); ABG PH 7.381 (7.350-7.450); AaDO2 48.8 mmHg; COHb 0.8 % (0.5-1.5); MetHb 0.2 % (0.0-1.5); O2Hb 94.7 % (94.0-97.0); SITE, ABG Left Radial; VENT MODE, BG ROOM AIR
[2019-10-25 09:42] LABS: CALCIUM, SERUM 8.2 mg/dL (8.5-10.1); CARBON DIOXIDE 15 mmol/L (21-32); CHLORIDE 110 mmol/L (98-107); CREATININE 2.5 mg/dL (0.6-1.3); GLUCOSE 300 mg/dL (74-106); POTASSIUM 2.9 mmol/L (3.5-5.1); SODIUM SERUM 145 mmol/L (136-145); UREA NITROGEN, BLOOD 55 mg/dL (7-18)
[2019-10-25] MEDS ORDERED: FEE PK DOSING 1 MIN EA MC ONE (10:13)
--- NOTE | 2019-10-25 10:26 | NUR ---
ICU/RN: TROP LEVEL REPORTED TO . TROP 0.734. NO NEW ORDERS
[2019-10-25 14:04] LABS: CALCIUM, SERUM 8.4 mg/dL (8.5-10.1); CARBON DIOXIDE 16 mmol/L (21-32); CHLORIDE 111 mmol/L (98-107); CREATININE 2.4 mg/dL (0.6-1.3); GLUCOSE 263 mg/dL (74-106); POTASSIUM 3.2 mmol/L (3.5-5.1); SODIUM SERUM 146 mmol/L (136-145); UREA NITROGEN, BLOOD 55 mg/dL (7-18)
[2019-10-25] MEDS ORDERED: POTASSIUM CHLORIDE 10 MEQ/50 ML PREMIXED IVPB FOR PERIPHERAL LINE IV ONE (17:00)
[2019-10-25 17:18] LABS: CALCIUM, SERUM 8.4 mg/dL (8.5-10.1); CARBON DIOXIDE 16 mmol/L (21-32); CHLORIDE 112 mmol/L (98-107); CREATININE 2.4 mg/dL (0.6-1.3); GLUCOSE 227 mg/dL (74-106); POTASSIUM 3.1 mmol/L (3.5-5.1); SODIUM SERUM 147 mmol/L (136-145); UREA NITROGEN, BLOOD 53 mg/dL (7-18)
[2019-10-25] MEDS: ATORVASTATIN 40 MG TABLET PO SCH (17:27)
[2019-10-25] MEDS: POTASSIUM CL. PREMIX PERIPHER. 50 ML IV SCH ×4 (18:39→22:16)
--- NOTE | 2019-10-25 19:00 | NUR ---
received patient unresponsive,slightly responds by withdrawing to deep pain,does not even open eyes.On room air ,breathing regular but with deep respiratory effort and tachypneic RR in the 30's but saturating 98-100 %.On insulin drip, FS check q 1 hr. Noted some mottling of legs ,slightly on both arms,reddish/flushed face ,and ecchymosis like/bruise on the abdomen. Midline on BLAZE ,intact,flushing well but no blood return obtained.
--- NOTE | 2019-10-25 19:39 | NUR ---
ICU/RN: ENDING NOTES,AM REPORT ENDORSED TO NIGHT NURSE FOR LARS. PT CONTINUES ON INSULIN DRIP. PT LETHARGIC, DOES NOT FOLLOW COMMANDS, REACTS TO PAINFUL STIMULI. ON ROOM AIR. NO ACUTE DISTRESS. ALL NEEDS ATTENDED TO, SAFETY MEASURES TAKEN, BED IN LOW POSITION, SIDE RAILS UP, CALL LIGHT WITHIN REACH.
[2019-10-25 21:05] LABS: CALCIUM, SERUM 8.4 mg/dL (8.5-10.1); CARBON DIOXIDE 11 mmol/L (21-32); CHLORIDE 109 mmol/L (98-107); CREATININE 2.3 mg/dL (0.6-1.3); POTASSIUM 4.3 mmol/L (3.5-5.1); SODIUM SERUM 145 mmol/L (136-145); UREA NITROGEN, BLOOD 54 mg/dL (7-18)
[2019-10-25 21:19] LABS: GLUCOSE 352 mg/dL (74-106)
[2019-10-25] MEDS: VANCOMYCIN 1 GM in IV D5W 250 ML IV SCH (22:16)
[2019-10-26] VITALS (39 sets, daily range): BP systolic 110–155; BP diastolic 48–72
--- NOTE | 2019-10-26 | NUR ---
Status unchanged,remains unresponsive, still on insulin drip.Still breathing with deep inspiratory effort,non labored and saturating 99-100 %.Will continue finger stick check q 1 hr
[2019-10-26] MEDS: BLOOD SUGAR DIAGNOSTIC 1 EACH STRIP IN SCH ×22 (00:02→23:05)
[2019-10-26] MEDS: PIPERACILLIN /TAZOBACTAM 2.25 G in IV D5W 50 ML IV SCH ×5 (00:03→23:30)
[2019-10-26 01:12] LABS: CALCIUM, SERUM 8.5 mg/dL (8.5-10.1); CARBON DIOXIDE 13 mmol/L (21-32); CHLORIDE 113 mmol/L (98-107); CREATININE 2.3 mg/dL (0.6-1.3); GLUCOSE 306 mg/dL (74-106); POTASSIUM 4.3 mmol/L (3.5-5.1); SODIUM SERUM 148 mmol/L (136-145); UREA NITROGEN, BLOOD 53 mg/dL (7-18)
--- NOTE | 2019-10-26 01:45 | NUR ---
Anion Gap not close =26,will continue insulin drip
[2019-10-26 04:27] LABS: BASOPHILS % (AUTO) 0.2 % (0.0-2.0); HEMATOCRIT 42 % (39-51); HEMOGLOBIN 14.1 g/dL (13.5-17.5); LYMPHOCYTES # (AUTO) 0.5 /CMM (0.8-4.8); LYMPHOCYTES % (AUTO) 6.3 % (20.0-44.0); MEAN CORPUSCULAR HGB CONC 34 g/dl (31.0-36.0); MEAN CORPUSCULAR VOLUME 91 fL (80-96); MONOCYTES % (AUTO) 12.8 % (2.0-12.0); NEUTROPHILS # (AUTO) 6.4 /CMM (1.8-8.9); NEUTROPHILS % (AUTO) 80.7 % (43.0-81.0); PLATELET COUNT (AUTO) 124 /CMM (150-450); RED BLOOD CELL COUNT(AUTO) 4.57 MIL/uL (4.5-6.0); WHITE BLOOD COUNT (AUTO) 7.9 K/uL (4.3-11.0)
[2019-10-26 04:39] LABS: CALCIUM, SERUM 8.3 mg/dL (8.5-10.1); CARBON DIOXIDE 16 mmol/L (21-32); CHLORIDE 113 mmol/L (98-107); CREATININE 2.2 mg/dL (0.6-1.3); GLUCOSE 244 mg/dL (74-106); POTASSIUM 4.1 mmol/L (3.5-5.1); SODIUM SERUM 148 mmol/L (136-145); UREA NITROGEN, BLOOD 45 mg/dL (7-18)
--- NOTE | 2019-10-26 05:30 | NUR ---
cALLED SERVICE OF TO RELAY TROPONIN LEVEL 0630 RESPONDED RELAYED TROPONIN LEVEL 0F 2.44
--- NOTE | 2019-10-26 06:30 | NUR ---
DR. MITCHELL WITH ORDERS TO GIVE LANTUS 30 UNITS SQ THEN DISCONTINUE INSULIN DRIP 2 HOURS AFTER GICING THE LANTUS THEN START SLIDING SCALE SQ Q AC AND HS WITH MODERATE COVERAGE.
[2019-10-26] MEDS ORDERED: INSULIN REGULAR, HUMAN 100 UNIT/ML 3 ML VIAL SQ PRN (07:00)
[2019-10-26] MEDS ORDERED: DEXTROSE 50%-WATER 50 ML DISP.SYRIN IV PRN (07:00)
[2019-10-26] MEDS ORDERED: INSULIN GLARGINE, 100 UNIT/ML CARTRIDGE SQ ONE (07:00)
[2019-10-26] MEDS ORDERED: *INSULIN REGULAR(HUMULIN R)HUM 100 UNIT/ML VIAL SQ PRN (07:00)
--- NOTE | 2019-10-26 07:00 | NUR ---
REPORT GIVEN TO GUILLERMO KLEIN
[2019-10-26] MEDS ORDERED: BLOOD SUGAR DIAGNOSTIC 1 EACH STRIP VI SCH (07:30)
[2019-10-26] MEDS: CARVEDILOL 12.5 MG TABLET PO SCH ×2 (09:00→21:00)
[2019-10-26] MEDS: ASPIRIN EC 81 MG TABLET.DR PO SCH (09:00)
[2019-10-26] MEDS: IV D5W 1,000 ML IV PRN ×2 (09:08→20:15)
--- NOTE | 2019-10-26 09:10 | NUR ---
RN NOTE Made Dr. Calle aware, patient still lethargic, only responds to pain at this time and unable to tolerate PO meds and diet, will hold PO meds for now.
[2019-10-26] MEDS: Z GUARD REMEDY 2 OZ OINT TP SCH (09:14)
[2019-10-26] MEDS: FAMOTIDINE/PF INJ 20 MG/2 ML VIAL IV SCH (09:19)
[2019-10-26 09:44] LABS: ABG OXYGEN SATURATION 96.7 % (92.0-98.5); ABG PCO2 21.9 mmHg (35.0-45.0); ABG PH 7.406 (7.350-7.450); ABG PO2 83.8 mmHg (75.0-100.0); AaDO2 39.7 mmHg; COHb 0.6 % (0.5-1.5); MetHb 0.3 % (0.0-1.5); O2Hb 95.8 % (94.0-97.0); SITE, ABG Right Radial; VENT MODE, BG ROOM AIR
[2019-10-26] MEDS ORDERED: HEPARIN SODIUM, PORCINE 5000 UNITS/1 ML VIAL IV ONE (10:00)
[2019-10-26 10:16] LABS: CALCIUM, SERUM 8.6 mg/dL (8.5-10.1); CARBON DIOXIDE 11 mmol/L (21-32); CHLORIDE 116 mmol/L (98-107); GLUCOSE 266 mg/dL (74-106); POTASSIUM 4.2 mmol/L (3.5-5.1); SODIUM SERUM 148 mmol/L (136-145); UREA NITROGEN, BLOOD 43 mg/dL (7-18)
[2019-10-26 10:24] LABS: ALANINE AMINOTRANSFERASE 38 U/L (12-78); ASPARTATE AMINOTRANSFERASE 82 U/L (15-37); BILIRUBIN,TOTAL 0.7 mg/dL (0.2-1.0); PHOSPHORUS 1.8 mg/dL (2.5-4.9)
[2019-10-26 10:33] LABS: MAGNESIUM 0.1 mg/dL (1.8-2.4)
[2019-10-26 10:34] LABS: ALKALINE PHOSPHATASE < 10 U/L (46-116)
--- NOTE | 2019-10-26 10:36 | NUR ---
RN NOTE 0715: Received patient lethargic, able to arouse through deep pain only. 98% in room air. Covid resulted neg. SR 90's on the monitor. BLAZE midline intact. De La Torre cath intact, noted with clear yellow urine drained to BSD. 0850: S/E by Dr. Calle, Lantus 30 to be given, MD aware. 0910: DC Lantus, and place back on Insulin drip goal to close the AG. also changed IVF to D5W. 1000: Will start on Heparin for ACS, awaiting PTT stat per pharmacy. 1030: Lab called for Mg 0.1 and Alb <0.6, made Dr. Calle aware, with order of 4gms Mg and repeat Mg level and BMP after replacements.
[2019-10-26 10:38] LABS: ALBUMIN < 0.6 g/dL (3.4-5.0)
[2019-10-26] MEDS: Magnesium 1GM/D5W 100ML PREMIX 100 ML IV SCH ×4 (11:37→14:43)
[2019-10-26 12:16] LABS: BASOPHILS % (AUTO) 0.1 % (0.0-2.0); HEMATOCRIT 44 % (39-51); HEMOGLOBIN 15.1 g/dL (13.5-17.5); LYMPHOCYTES # (AUTO) 0.5 /CMM (0.8-4.8); LYMPHOCYTES % (AUTO) 6.3 % (20.0-44.0); MEAN CORPUSCULAR HGB CONC 34 g/dl (31.0-36.0); MEAN CORPUSCULAR VOLUME 91 fL (80-96); MONOCYTES # (AUTO) 0.8 /CMM (0.1-1.30); MONOCYTES % (AUTO) 9.9 % (2.0-12.0); NEUTROPHILS # (AUTO) 6.6 /CMM (1.8-8.9); NEUTROPHILS % (AUTO) 83.7 % (43.0-81.0); PLATELET COUNT (AUTO) 105 /CMM (150-450); RED BLOOD CELL COUNT(AUTO) 4.85 MIL/uL (4.5-6.0); WHITE BLOOD COUNT (AUTO) 7.9 K/uL (4.3-11.0)
[2019-10-26 13:00] LABS: CALCIUM, SERUM 8.2 mg/dL (8.5-10.1); CARBON DIOXIDE 15 mmol/L (21-32); CHLORIDE 114 mmol/L (98-107); CREATININE 1.8 mg/dL (0.6-1.3); GLUCOSE 318 mg/dL (74-106); POTASSIUM 3.5 mmol/L (3.5-5.1); SODIUM SERUM 147 mmol/L (136-145); UREA NITROGEN, BLOOD 38 mg/dL (7-18)
[2019-10-26] MEDS: HEPARIN INFUSION/D5W 500 ML IV PRN (13:18)
[2019-10-26] MEDS: INSULIN REGULAR, HUMAN 100 UNIT in IV NS 0.9% 99 ML IV PRN ×2 (15:34)
[2019-10-26 16:35] LABS: CALCIUM, SERUM 8.4 mg/dL (8.5-10.1); CARBON DIOXIDE 20 mmol/L (21-32); CHLORIDE 112 mmol/L (98-107); CREATININE 1.9 mg/dL (0.6-1.3); GLUCOSE 348 mg/dL (74-106); MAGNESIUM 3.6 mg/dL (1.8-2.4); POTASSIUM 3.6 mmol/L (3.5-5.1); SODIUM SERUM 148 mmol/L (136-145); UREA NITROGEN, BLOOD 34 mg/dL (7-18)
[2019-10-26] MEDS: ATORVASTATIN 40 MG TABLET PO SCH (17:38)
--- NOTE | 2019-10-26 19:20 | NUR ---
HOSE HANDLER OPENING NOTES RECEIVED REPORT FROM AM NURSE. PT LETHARGIC, DOES NOT OBEY COMMANDS, REACTS TO PAINFUL STIMULI. PT ON ROOM AIR, NO ACUTE DISTRESS NOTED SPO2 @ 98%. SINUS ON TELE. BATES CATH IN PLACE, DRAINING YELLOW URINE. MIDLINE AND PIV PATENT AND INTACT, NO S/S OF INFECTION OR INFILTRATION NOTED. PT ON INSULIN DRIP, INFUSING PER ALGORITHM 4. ON HEPARIN DRIP RUNNING @ 1200 UNITS/HR SAFETY MEASURES TAKEN, BED IN LOW POSITION, SIDE RAILS UP, CALL LIGHT WITHIN REACH WILL CONT TO MONITOR.
--- NOTE | 2019-10-26 19:43 | NUR ---
DIE TECHNICIAN NOTES MRSA LAB RECEIVED WITH POSITIVE RESULT PT PUT ON CONTACT PRECAUTION.
[2019-10-26] MEDS ORDERED: hydrALAZINE HCL IV 20 MG VIAL IV PRN (21:00)
--- NOTE | 2019-10-26 21:00 | NUR ---
INTELLIGENCE RESEARCH SPECIALIST NOTES PT STILL LETHARGIC UNABLE TO GIVE PO MEDS D/T HIGH RISK OF ASPIRATION DR MITCHELL MADE AWARE WITH ORDER PRN MEDICATION FOR BP AND TO START BACTROBAN VIA NARES FOR MRSA NARES NOTED AND CARRIED OUT
[2019-10-26 21:19] LABS: CALCIUM, SERUM 8.4 mg/dL (8.5-10.1); CARBON DIOXIDE 23 mmol/L (21-32); CHLORIDE 113 mmol/L (98-107); CREATININE 1.8 mg/dL (0.6-1.3); GLUCOSE 329 mg/dL (74-106); POTASSIUM 3.3 mmol/L (3.5-5.1); SODIUM SERUM 148 mmol/L (136-145); UREA NITROGEN, BLOOD 29 mg/dL (7-18)
[2019-10-26] MEDS: MUPIROCIN OINT 2% 22 GM TUBE SCH (21:26)
--- NOTE | 2019-10-26 21:33 | NUR ---
PROJECT ENGINEERING MANAGER NOTES RELAYED TO DR. MITCHELL THE LATEST BMP RESULTS WITH ANION GAP 15 WITH ORDER TO CONTINUE INSULIN DRIP RATE PER PROTOCOL THEN DO BMP WITH AM LABS NOTED AND CARRIED OUT
[2019-10-26] MEDS: IV NS 0.9% 250 ML IV PRN (21:59)
[2019-10-26] MEDS: VANCOMYCIN 1 GM in IV D5W 250 ML IV SCH (22:00)
[2019-10-27] VITALS (43 sets, daily range): BP systolic 112–156; BP diastolic 52–74
[2019-10-27] MEDS: BLOOD SUGAR DIAGNOSTIC 1 EACH STRIP IN SCH ×16 (01:05→17:46)
[2019-10-27 03:25] LABS: BASOPHILS % (AUTO) 0.1 % (0.0-2.0); HEMATOCRIT 39 % (39-51); HEMOGLOBIN 13.7 g/dL (13.5-17.5); LYMPHOCYTES # (AUTO) 0.9 /CMM (0.8-4.8); LYMPHOCYTES % (AUTO) 11.8 % (20.0-44.0); MEAN CORPUSCULAR HGB CONC 35 g/dl (31.0-36.0); MEAN CORPUSCULAR VOLUME 89 fL (80-96); MONOCYTES # (AUTO) 0.6 /CMM (0.1-1.30); MONOCYTES % (AUTO) 7.9 % (2.0-12.0); NEUTROPHILS # (AUTO) 6.3 /CMM (1.8-8.9); NEUTROPHILS % (AUTO) 80.2 % (43.0-81.0); PLATELET COUNT (AUTO) 90 /CMM (150-450); RED BLOOD CELL COUNT(AUTO) 4.45 MIL/uL (4.5-6.0); WHITE BLOOD COUNT (AUTO) 7.8 K/uL (4.3-11.0)
[2019-10-27 03:42] LABS: ALANINE AMINOTRANSFERASE 42 U/L (12-78); ALBUMIN 2.2 g/dL (3.4-5.0); ALKALINE PHOSPHATASE 55 U/L (46-116); ASPARTATE AMINOTRANSFERASE 51 U/L (15-37); BILIRUBIN,TOTAL 0.9 mg/dL (0.2-1.0); CALCIUM, SERUM 8.4 mg/dL (8.5-10.1); CARBON DIOXIDE 22 mmol/L (21-32); CHLORIDE 112 mmol/L (98-107); CREATININE 1.5 mg/dL (0.6-1.3); GLUCOSE 260 mg/dL (74-106); PHOSPHORUS 1.3 mg/dL (2.5-4.9); SODIUM SERUM 148 mmol/L (136-145); TOTAL PROTEIN, SERUM 5.7 g/dL (6.4-8.2); UREA NITROGEN, BLOOD 22 mg/dL (7-18)
[2019-10-27 03:56] LABS: BAND % (MANUAL) 6 % (0.0-5.0); LYMPHOCYTES % (MANUAL) 15 % (16-48); MONOCYTES % (MANUAL) 5 % (0-11.0); NEUTROPHILS % (MANUAL) 74 (42-76)
[2019-10-27] MEDS: PIPERACILLIN /TAZOBACTAM 2.25 G in IV D5W 50 ML IV SCH (06:30)
[2019-10-27] MEDS: IV D5W 1,000 ML IV PRN ×2 (06:30→17:35)
--- NOTE | 2019-10-27 07:33 | NUR ---
WELL POINT PUMPING SUPERVISOR NOTES PT SLEEPING ON BED LETHARGIC, AWAKING IN STIMULI AND MILD PAIN, ON ROOM AIR SPO2 98%, TELE MONITOR READING SR 80'S STILL ON INSULIN DRIP RUNNING @ 3UNITS/HR PER PROTOCOL, D5W@ 100ML/HR VIA DENISE MIDLINE INFUSING WELL, ON HEPARIN DRIP @ 1050 UNITS/HR PER PROTOCOL VIA R AC # 20 INFUSING WELL NO SIGN OF INFILTRATION,ALL NEEDS ATTENDED ON CONTACT ISOLATION FOR MRSA NARES, SAFETY MEASURE MAINTAINED BED ON LOWEST POSITION AND LOCKED, CALL LIGHT WITHIN REACH WILL CONT TO MONITOR
[2019-10-27] MEDS: FAMOTIDINE/PF INJ 20 MG/2 ML VIAL IV SCH (08:21)
[2019-10-27] MEDS: MUPIROCIN OINT 2% 22 GM TUBE SCH ×2 (08:21→21:23)
[2019-10-27] MEDS: CARVEDILOL 12.5 MG TABLET PO SCH ×2 (08:22→21:00)
[2019-10-27] MEDS: ASPIRIN EC 81 MG TABLET.DR PO SCH (08:22)
[2019-10-27] MEDS: Z GUARD REMEDY 2 OZ OINT TP SCH (08:23)
[2019-10-27] MEDS ORDERED: POTASSIUM CHLORIDE 10 MEQ/50 ML PREMIXED IVPB FOR PERIPHERAL LINE IV ONE (08:30)
[2019-10-27 08:44] LABS: CALCIUM, SERUM 8.3 mg/dL (8.5-10.1); CREATININE 1.3 mg/dL (0.6-1.3); POTASSIUM 3.2 mmol/L (3.5-5.1)
--- NOTE | 2019-10-27 09:00 | NUR ---
PRODUCTION SUPERVISOR TRAINEE NOTES ORAL MEDICATION NOT GIVEN D/T PATIENT STILL LETHARGIC AND THERES A HIGH RSIK FOR ASPIRATION DR MITCHELL AWARE
[2019-10-27] MEDS: POTASSIUM CL. PREMIX PERIPHER. 50 ML IV SCH ×4 (09:16→12:24)
[2019-10-27] MEDS: VANCOMYCIN 0.75 GM in IV D5W 250 ML IV SCH ×2 (11:00→23:10)
[2019-10-27] MEDS: INSULIN REGULAR, HUMAN 100 UNIT in IV NS 0.9% 99 ML IV PRN ×2 (11:37)
[2019-10-27] MEDS ORDERED: Sodium Phosphate 15 MMOL in IV NS 0.9% 95 ML IV SCH (12:00)
[2019-10-27] MEDS: HEPARIN INFUSION/D5W 500 ML IV PRN (12:01)
[2019-10-27] MEDS: PIPERACILLIN /TAZOBACTAM 3.375 G in IV D5W 50 ML IV SCH ×2 (12:01→17:30)
[2019-10-27] MEDS: SODIUM PHOSPHATE IV SCH ×2 (12:01→15:33)
[2019-10-27] MEDS: NS 0.9% IV SCH ×2 (12:01→15:33)
[2019-10-27 13:31] LABS: CREATININE 1.1 mg/dL (0.6-1.3); POTASSIUM 3.4 mmol/L (3.5-5.1)
--- NOTE | 2019-10-27 14:20 | NUR ---
EYEGLASS LENS GENERATOR NOTES RELAYED TO DR. MITCHELL THE LATEST BMP WITH ANION GAP OF 15, WITH ORDER GIVE LANTUS 30 UNITS SQ X1 NOW, STOP INSULIN DRIP 2HOURS AFTER GIVING LANTUS, START SLIDING SCALE FOR NPO WITH ACCU CHEK Q6H STOP Q4H BMP AND STOP HEPARIN DRIP D/T LOW PLATELET COUNT NOTED AND CARRIED OUT
[2019-10-27] MEDS ORDERED: INSULIN GLARGINE, 100 UNIT/ML CARTRIDGE SQ ONE (14:30)
[2019-10-27] MEDS ORDERED: DEXTROSE 50%-WATER 50 ML DISP.SYRIN IV PRN (14:30)
[2019-10-27] MEDS: INSULIN REGULAR, HUMAN 100 UNIT/ML 3 ML VIAL SQ PRN (17:48)
[2019-10-27] MEDS: ATORVASTATIN 40 MG TABLET PO SCH (18:00)
--- NOTE | 2019-10-27 18:39 | NUR ---
CLERK OF SCALES NOTES PT SLEEPING ON BED LETHARGIC, AWAKING IN STIMULI AND MILD PAIN, ON ROOM AIR SPO2 98%, TELE MONITOR READING SR 80'S D5W@ 100ML/HR VIA DENISE MIDLINE INFUSING WELL, R AC # 20 PATENT NO SIGN OF INFILTRATION,ALL NEEDS ATTENDED ON CONTACT ISOLATION FOR MRSA NARES, SAFETY MEASURE MAINTAINED BED ON LOWEST POSITION AND LOCKED, CALL LIGHT WITHIN REACH WILL ENDORSE TO PM SHIFT NURSE
--- NOTE | 2019-10-27 19:00 | NUR ---
Received patient lethargic,arousable with repeated tapping and calling his name, opens eyes but still not talking,easily falls back to sleep.Not in any distress,breathing regular and non labored. Has been off insulin drip since 1600, now on SQ coverage. Will closely monitor,ASpiration Precaution since patient still very lethargic.
--- NOTE | 2019-10-27 22:00 | NUR ---
Seems more responsive,responds quicker when awakens,opens eyes now with good eye contact,nods but still have difficulty speaking,but seems to understand ,still very weak.
[2019-10-28] VITALS (23 sets, daily range): BP systolic 100–139; BP diastolic 52–99
--- NOTE | 2019-10-28 | NUR ---
Remains stable,still drowsy but easy to arouse and stays awake longer but still not talking.
[2019-10-28] MEDS: PIPERACILLIN /TAZOBACTAM 3.375 G in IV D5W 50 ML IV SCH ×5 (00:15→23:12)
[2019-10-28] MEDS: BLOOD SUGAR DIAGNOSTIC 1 EACH STRIP IN SCH ×2 (00:26→06:22)
[2019-10-28] MEDS: INSULIN REGULAR, HUMAN 100 UNIT/ML 3 ML VIAL SQ PRN ×4 (00:29→17:36)
[2019-10-28] MEDS: IV NS 0.9% 250 ML IV PRN (01:35)
--- NOTE | 2019-10-28 04:00 | NUR ---
Stable,AM bath done.
[2019-10-28 04:51] LABS: BASOPHILS % (AUTO) 0.2 % (0.0-2.0); EOSINOPHILS % (AUTO) 0.4 % (0.0-6.0); HEMATOCRIT 39 % (39-51); HEMOGLOBIN 13.3 g/dL (13.5-17.5); LYMPHOCYTES # (AUTO) 0.7 /CMM (0.8-4.8); LYMPHOCYTES % (AUTO) 12.8 % (20.0-44.0); MEAN CORPUSCULAR HGB CONC 34 g/dl (31.0-36.0); MEAN CORPUSCULAR VOLUME 91 fL (80-96); MONOCYTES # (AUTO) 0.5 /CMM (0.1-1.30); MONOCYTES % (AUTO) 8.3 % (2.0-12.0); NEUTROPHILS # (AUTO) 4.4 /CMM (1.8-8.9); NEUTROPHILS % (AUTO) 78.3 % (43.0-81.0); PLATELET COUNT (AUTO) 87 /CMM (150-450); RED BLOOD CELL COUNT(AUTO) 4.29 MIL/uL (4.5-6.0); WHITE BLOOD COUNT (AUTO) 5.6 K/uL (4.3-11.0)
[2019-10-28 05:31] LABS: NEUTROPHILS % (MANUAL) 83 (42-76)
[2019-10-28 05:32] LABS: ALBUMIN 2.1 g/dL (3.4-5.0); BILIRUBIN,TOTAL 1.3 mg/dL (0.2-1.0); CALCIUM, SERUM 8.1 mg/dL (8.5-10.1); CREATININE 1.2 mg/dL (0.6-1.3); LYMPHOCYTES % (MANUAL) 10 % (16-48); MAGNESIUM 2.5 mg/dL (1.8-2.4); MONOCYTES % (MANUAL) 7 % (0-11.0); PHOSPHORUS 2.4 mg/dL (2.5-4.9); POTASSIUM 3.1 mmol/L (3.5-5.1); TOTAL PROTEIN, SERUM 5.7 g/dL (6.4-8.2)
[2019-10-28] MEDS: IV D5W 1,000 ML IV PRN (06:34)
--- NOTE | 2019-10-28 07:35 | NUR ---
GROCERY SPECIALIST: pt.is drowsy, reactive by name, can open eyes, short eyes contact+, can follow simple commands, weak, no pain, SR, SBP over 100, O2sat. over 95% on RA, no SOB, K+ 3.1, BG 298/NPO ISS, will s/w MD, getting D5W 100 ml/h
[2019-10-28] MEDS ORDERED: POTASSIUM PHOSPHATE MM 15 MMOL in IV NS 0.9% 250 ML IV SCH (08:00)
[2019-10-28] MEDS ORDERED: Magnesium 1GM/D5W 100ML PREMIX 100 ML IV SCH (08:00)
[2019-10-28] MEDS ORDERED: POTASSIUM CHLORIDE 10 MEQ/50 ML PREMIXED IVPB FOR PERIPHERAL LINE IV ONE (08:00)
[2019-10-28] MEDS: ASPIRIN EC 81 MG TABLET.DR PO SCH (08:06)
[2019-10-28] MEDS: CARVEDILOL 12.5 MG TABLET PO SCH ×2 (08:07→21:00)
[2019-10-28] MEDS: FAMOTIDINE/PF INJ 20 MG/2 ML VIAL IV SCH (08:07)
[2019-10-28] MEDS: POTASSIUM CL. PREMIX PERIPHER. 50 ML IV SCH ×4 (08:22→12:25)
[2019-10-28] MEDS ORDERED: ENOXAPARIN SODIUM 40 MG/0.4 ML DISP.SYRIN SQ SCH (08:30)
--- NOTE | 2019-10-28 08:30 | NUR ---
SAGGER SOAK: is in room, updated with all above, ordered: ISS moder, AC/HS, d/c Mg IV, see new orders
[2019-10-28] MEDS: POTASSIUM PHOSPHATE MM 7.5 MMOL in IV D5W 100 ML IV SCH ×2 (09:39→13:26)
[2019-10-28] MEDS: MUPIROCIN OINT 2% 22 GM TUBE SCH ×2 (09:40→21:59)
[2019-10-28] MEDS: INSULIN GLARGINE, 100 UNIT/ML CARTRIDGE SQ SCH ×2 (09:43→21:49)
[2019-10-28] MEDS: Z GUARD REMEDY 2 OZ OINT TP SCH (09:46)
[2019-10-28] MEDS ORDERED: ONDANSETRON HCL/PF 4 MG/2 ML VIAL IVP PRN (10:00)
[2019-10-28] MEDS ORDERED: DEXTROSE 50%-WATER 50 ML DISP.SYRIN IV PRN (10:30)
--- NOTE | 2019-10-28 10:35 | NUR ---
MANAGER SURGERY: pt is transferred to [address] [place] [address] after full report for ERNIE Mulligan
--- NOTE | 2019-10-28 10:45 | NUR ---
VAMP WETTER NOTES RECEIVED PATIENT FROM ICU REPORT GIVEN BY DWAYNE. PATIENT ALERT ORIENTED X 2. NO ACUTE DISTRESS NOTED. IV ACCESS PATENT AND INTACT , NO REDNESS , NO SWELLING NOTED. PLACED ON FITNESS AND WELLNESS COORDINATOR SINUS RHYTHM. SAFETY MEASURES IN PLACE CALL LIGHT WITH IN REACH. WILL CONTINUE TO MONITOR ACCORDINGLY.
[2019-10-28] MEDS: BLOOD SUGAR DIAGNOSTIC 1 EACH STRIP VI SCH ×3 (12:25→21:48)
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
[2019-10-28] MEDS: ATORVASTATIN 40 MG TABLET PO SCH (17:39)
--- NOTE | 2019-10-28 19:00 | NUR ---
ECOLOGICAL ECONOMIST NOTES PATIENT IN BED ALERT ORIENTED X 2. NO ACUTE DISTRESS NOTED. IV ACCESS PATENT AND INTACT , NO REDNESS , NO SWELLING NOTED. ON COMPUTER TESTER SINUS RHYTHM. TURN AND REPOSITION EVERY 2 HOURS AND NEEDED. SAFETY MEASURES IN PLACE CALL LIGHT WITH IN REACH. WILL ENDORSE TO NIGHT NURSE FOR CONTINUITY OF CARE.
--- NOTE | 2019-10-28 19:44 | NUR ---
FLIGHT/TRANSPORT NURSE NOTES PATIENT IN BED, ALERT AND ORIENTED X 2. CURRENTLY EATING DINNER. BREATHING EVEN AND UNLABORED ON ROOM AIR, SHOWS NO SIGNS OF ACUTE RESPIRATORY DISTRESS, NO ACUTE PAIN. BLAZE MIDLINE RUNNING KCL 20MEQ AT 100ML/HR. F/C INTACT FLOWING YELLOW URINE.SHOWS NO SIGNS OF INFILTRATION, NO REDNESS. SAFETY PRECAUTION IN PLACE. BED IN LOWEST POSITION, LOCKED, AND CALL LIGHT KEPT WITHIN REACH. WILL CONTINUE TO MONITOR.
[2019-10-28] MEDS: *INSULIN REGULAR(HUMULIN R)HUM 100 UNIT/ML VIAL SQ PRN (21:50)
[2019-10-29 00:19] VITALS: BP 128/61
[2019-10-29 04:00] VITALS: BP 131/61
[2019-10-29] MEDS: PIPERACILLIN /TAZOBACTAM 3.375 G in IV D5W 50 ML IV SCH ×3 (05:16→18:11)
[2019-10-29] MEDS: BLOOD SUGAR DIAGNOSTIC 1 EACH STRIP VI SCH ×4 (06:41→22:13)
[2019-10-29] MEDS: INSULIN REGULAR, HUMAN 100 UNIT/ML 3 ML VIAL SQ PRN ×3 (06:46→18:00)
--- NOTE | 2019-10-29 06:46 | NUR ---
BENCHROOM SHOP OPTICIAN NOTES PATIENT IN BED, ALERT AND ORIENTED X 2. BREATHING EVEN AND UNLABORED ON ROOM AIR, SHOWS NO SIGNS OF ACUTE RESPIRATORY DISTRESS, NO ACUTE PAIN. BLAZE MIDLINE RUNNING KCL 20MEQ AT 100ML/HR. SHOWS NO SIGNS OF INFILTRATION, NO REDNESS. F/C INTACT FLOWING YELLOW CLOUDY URINE. TELE MONITOR SR. ALL DUE MEDICATIONS GIVEN. SAFETY PRECAUTION IN PLACE. BED IN LOWEST POSITION, LOCKED, AND CALL LIGHT KEPT WITHIN REACH. WILL ENDORSE TO ONCOMING NURSE.
[2019-10-29 07:39] LABS: CALCIUM, SERUM 8.4 mg/dL (8.5-10.1); CREATININE 1.2 mg/dL (0.6-1.3); MAGNESIUM 2.5 mg/dL (1.8-2.4); POTASSIUM 3.7 mmol/L (3.5-5.1)
--- NOTE | 2019-10-29 07:57 | NUR ---
AXLE POLISHER NOTES LAB REPORTED GLUCOSE LEVEL 373MG/DL.
[2019-10-29 08:00] VITALS: BP 130/64
--- NOTE | 2019-10-29 08:00 | NUR ---
HOOK UP OPENING NOTES RECEIVED PATIENT FROM FLIGHT DIRECTOR NURSE IN BED, AWAKE, COOPERATIVE, BREATHING AT ROOM AIR, UNLABORED BREATHING, NO SIGNS OF RESPIRATORY DISTRESS, BLAZE MIDLINE 1/2NS KCL 100ML/HR, LAC #20, RIGHT HAND 18G, BATES CATH ATTACHED WITH YELLOWISH TEA COLORED URINE, SIDE RAILS UP.
[2019-10-29] MEDS: ASPIRIN EC 81 MG TABLET.DR PO SCH (09:16)
[2019-10-29] MEDS: CARVEDILOL 12.5 MG TABLET PO SCH ×2 (09:17→21:28)
[2019-10-29] MEDS: Z GUARD REMEDY 2 OZ OINT TP SCH (09:18)
[2019-10-29] MEDS: MUPIROCIN OINT 2% 22 GM TUBE SCH ×2 (09:19→21:30)
[2019-10-29 09:23] LABS: BASOPHILS % (AUTO) 0.3 % (0.0-2.0); EOSINOPHILS % (AUTO) 2.4 % (0.0-6.0); HEMATOCRIT 41 % (39-51); HEMOGLOBIN 13.7 g/dL (13.5-17.5); LYMPHOCYTES % (AUTO) 15.7 % (20.0-44.0); MEAN CORPUSCULAR HGB CONC 34 g/dl (31.0-36.0); MEAN CORPUSCULAR VOLUME 92 fL (80-96); MONOCYTES # (AUTO) 0.9 /CMM (0.1-1.30); MONOCYTES % (AUTO) 14.9 % (2.0-12.0); NEUTROPHILS # (AUTO) 4.2 /CMM (1.8-8.9); NEUTROPHILS % (AUTO) 66.7 % (43.0-81.0); PLATELET COUNT (AUTO) 98 /CMM (150-450); RED BLOOD CELL COUNT(AUTO) 4.46 MIL/uL (4.5-6.0); WHITE BLOOD COUNT (AUTO) 6.2 K/uL (4.3-11.0)
--- NOTE | 2019-10-29 10:32 | NUR ---
DENTAL TECHNOLOGIST NOTES SEEN BY DR. MITCHELL. BATES CATHETER REMOVED.
[2019-10-29] MEDS ORDERED: MUPI22OI7 (11:44)
[2019-10-29] MEDS ORDERED: SERT50TA PO (11:44)
[2019-10-29] MEDS ORDERED: INSU100V28 SQ (11:44)
[2019-10-29] MEDS ORDERED: CARV12.52 PO (11:44)
[2019-10-29] MEDS ORDERED: *INS REG SQ (11:44)
[2019-10-29] MEDS ORDERED: Insulin Glargine,Hum SQ (11:47)
[2019-10-29] MEDS ORDERED: AMOX-430 PO (11:47)
[2019-10-29] MEDS: SERTRALINE HCL 50 MG TABLET PO SCH (12:29)
[2019-10-29] MEDS ORDERED: IV NS 0.9% 250 ML IV ONE ×2 (12:59→13:02)
[2019-10-29] MEDS ORDERED: IOHEXOL-350 100 ML VIAL IV ONE ×2 (12:59→13:02)
--- NOTE | 2019-10-29 13:00 | NUR ---
TECHNOLOGY SALES SPECIALIST NOTES PATIENT WAS NOT IN THE ROOM. PATIENT WAS IN RADIOLOGY FOR A PROCEDURE CT ANGIO OF THE HEART WITH 3D IMAGE.
[2019-10-29] MEDS ORDERED: CT SWABBABLE VALVE TRANS SET 1 EA INFUS.SET MC ONE (13:02)
--- NOTE | 2019-10-29 14:09 | NUR ---
LITIGATION ASSISTANT NOTES PATIENT JUST ARRIVED IN THE ROOM FROM A RECENT PROCEDURE.
--- NOTE | 2019-10-29 14:19 | NUR ---
RN KYMBERLY OBTAINED CONSENT FOR CONTRAST AND EXAM. PT AWAKE BUT DID NOT FOLLOWING BREATHING INSTRUCTION DURING EXAM AFTER MULTIPLE ATTEMPTS TO INSTRUCT. PT CONSTANTLY MOVING DURING PROCEDURE. COMMUNICATED INFORMATION TO DR. MINER FOR READING THROUGH [facility]. WHO RELAYED INFORMATION TO DR. MINER.
[2019-10-29] MEDS ORDERED: IV NS 0.9% 500 ML IV ONE (14:30)
[2019-10-29] MEDS ORDERED: NITROGLYCERIN 4.9 GM SPRAY SL ONE (14:30)
--- NOTE | 2019-10-29 14:45 | NUR ---
ENDS DOWN CHECKER NOTES TALK TO SIDDHARTH FROM X-RAY. SHE CONFIRMED THAT THEY GIVE THE NITROGLYCERIN SPRAY TO THE PATIENT.
[2019-10-29 16:00] VITALS: BP 131/66
[2019-10-29] MEDS: ATORVASTATIN 40 MG TABLET PO SCH (18:11)
--- NOTE | 2019-10-29 19:38 | NUR ---
RN NOTES RECEIVED A CALL FROM DR. MITCHELL. CORONARY ANGIOGRAPHY CT, NO RESULT YET. WILL CALL AND INFORM DR. MITCHELL ONCE WE GET THE RESULT.
--- NOTE | 2019-10-29 19:41 | NUR ---
THREAD SINGER CLOSING NOTES ENDORSED PATIENT TO REPRESENTATIVE PHLEBOTOMY SERVICES NURSE IN BED, AWAKE, BREATHING AT ROOM AIR, NO SIGNS OF RESPIRATORY DISTRESS, BLAZE MIDLINE NS 500ML AT TKO, LAC #20G, RIGHT HAND #18G, NO SIGNS OF REDNESS OR INFILTRATION NOTED, SIDE RAILS UP FOR SAFETY.
[2019-10-29 20:00] VITALS: BP 129/70
--- NOTE | 2019-10-29 20:00 | NUR ---
RN NOTES RECEIVED A CALL FROM [facility] ( [phone] ). PATIENT WILL POSSIBLY BE DISCHARGE TO [facility] ( [address] [place] [address] ) TEL. # [phone] IN ROOM #3, ONCE CORONARY ANGIOGRAPHY CT RESULT IS NEGATIVE. WILL CALL AND FOLLOW UP RADIOLOGY DEPARTMENT FOR RESULT.
--- NOTE | 2019-10-29 20:03 | NUR ---
RN NOTES CALLED AND SPOKE TO NAVEEN OF RADIOLOGY DEPARTMENT, NO RESULT YET FOR CORONARY ANGIOGRAPHY CT.
--- NOTE | 2019-10-29 20:36 | NUR ---
RN NOTES RECEIVED A CALL FROM [facility] ). [facility] ( ) WILL NOT ACCEPT ADMISSION AFTER 2199. AWAITING FOR THE RESULT OF CT ANGIOGRAM.
[2019-10-29] MEDS: INSULIN GLARGINE, 100 UNIT/ML CARTRIDGE SQ SCH (22:10)
[2019-10-29] MEDS: *INSULIN REGULAR(HUMULIN R)HUM 100 UNIT/ML VIAL SQ PRN (22:12)
[2019-10-30] MEDS: PIPERACILLIN /TAZOBACTAM 3.375 G in IV D5W 50 ML IV SCH ×3 (00:05→12:23)
[2019-10-30] MEDS: BLOOD SUGAR DIAGNOSTIC 1 EACH STRIP VI SCH ×2 (06:56→12:29)
[2019-10-30] MEDS: INSULIN REGULAR, HUMAN 100 UNIT/ML 3 ML VIAL SQ PRN ×2 (06:57→12:30)
--- NOTE | 2019-10-30 07:15 | NUR ---
RN NOTES ALL NEEDS ATTENDED AND MET. ABLE TO REST AND SLEPT AT INTERVALS, SAFETY MEASURES IN PLACE, ASPIRATION PRECAUTION EMPHASIZED, KEPT CLEAN WARM, DRY AND COMFORTABLE. CALL LIGHT WITH IN EASY REACH, STILL AWAITING FOR CORONARY ANGIOGRAPHY CT WITH 3D RESULT. INFORMED AM NURSE TO FOLLOW UP AND CALL AND INFORM DR. MITCHELL ([phone]). ENDORSED TO AJITHRN FOR CONTINUITY OF CARE.
--- NOTE | 2019-10-30 07:30 | NUR ---
MS/RN NOTE RECEIVED THE PATIENT IN BED. THE PATIENT A/O X3. DENIES PAIN. IN ROOM AIR AND DENIES SOB. RESPIRATION REGULAR AND UNLABORED. PATIENT IN NO APPARENT DISTRESS. BLAZE MIDLINE PATENT AND SALINE LOCKED. RIGHT HAND G 18 AND LAC G 20 BOTH PATENT AND SALINE LOCKED. BED LOW AND LOCKED. SIDE RAILS UP X3. CALL LIGHT WITHIN REACH. WILL CONTINUE TO MONITOR.
[2019-10-30] MEDS: INSULIN GLARGINE, 100 UNIT/ML CARTRIDGE SQ SCH (08:43)
[2019-10-30] MEDS ORDERED: VALSARTAN 80 MG TABLET PO SCH (09:00)
[2019-10-30] MEDS: CARVEDILOL 12.5 MG TABLET PO SCH (09:00)
[2019-10-30] MEDS: ASPIRIN EC 81 MG TABLET.DR PO SCH (09:48)
[2019-10-30] MEDS: SERTRALINE HCL 50 MG TABLET PO SCH (09:48)
[2019-10-30 09:49] VITALS: BP 143/71
[2019-10-30] MEDS: MUPIROCIN OINT 2% 22 GM TUBE SCH (09:50)
[2019-10-30] MEDS: Z GUARD REMEDY 2 OZ OINT TP SCH (10:01)
--- NOTE | 2019-10-30 10:05 | NUR ---
MS/RN NOTE COREG 25 MG DUE AT 0900 IS NOT ADMINISTERED DUE TO PATIENT`S HEART RATE IS 52.
[2019-10-30 11:48] LABS: CALCIUM, SERUM 8.9 mg/dL (8.5-10.1); CREATININE 1.1 mg/dL (0.6-1.3); POTASSIUM 4.1 mmol/L (3.5-5.1)
--- NOTE | 2019-10-30 13:30 | NUR ---
MS/RN NOTE THE PATIENT IS ALERT AND ORIENTED X3. IN ROOM AIR AND SATURATION IS AT 97%. DENIES SOB. RESPIRATION REGULAR AND UNLABORED. DENIES PAIN. THE PATIENT IN NO APPARENT DISTRESS. DISCHARGE EDUCATION PROVIDED AND HE VERBALIZE UNDERSTANDING. BLAZE MIDLINE, LAC AND RIGHT HAND IV LINES REMOVED WITH NO BLEEDING FROM THE SITES AND NO MISSING PARTS FROM THE CATHETERS. REPORT GIVEN TO ACCEPTING NURSE ROSMERY. THE PATIENT LEFT THE HOSPITAL IN STABLE CONDITION AND VIA AMBULANCE.
[2019-10-30] MEDS ORDERED: INSULIN GLARGINE, 100 UNIT/ML CARTRIDGE SQ SCH (21:00)
== END 2019-10-30 13:36 | DRG 871 ==
LOC: ER 19:00 → ICU 22:22 → TELE 10-28 10:52 → MED 10-29 09:55
PROVIDERS: ADMIT Internal Medicine; ATTEND Internal Medicine
PROC: 05HA33Z Insertion of Infusion Device into Left Brachial Vein, Percutaneous Approach (ICD-10-PCS; principal; 2019-10-25)
DX: A41.9 Sepsis, unspecified organism (principal); E11.00 Type 2 diabetes mellitus with hyperosmolarity without nonketotic hyperglycemic-hyperosmolar coma (NKHHC); G93.41 Metabolic encephalopathy; E11.10 Type 2 diabetes mellitus with ketoacidosis without coma; J69.0 Pneumonitis due to inhalation of food and vomit; I21.4 Non-ST elevation (NSTEMI) myocardial infarction; N17.0 Acute kidney failure with tubular necrosis; F05 Delirium due to known physiological condition; F33.1 Major depressive disorder, recurrent, moderate; G91.2 (Idiopathic) normal pressure hydrocephalus; E78.5 Hyperlipidemia, unspecified; Z86.73 Personal history of transient ischemic attack (TIA), and cerebral infarction without residual deficits; D69.6 Thrombocytopenia, unspecified; E86.1 Hypovolemia; E11.51 Type 2 diabetes mellitus with diabetic peripheral angiopathy without gangrene; F60.9 Personality disorder, unspecified; E83.39 Other disorders of phosphorus metabolism; E87.6 Hypokalemia; Z91.19 Patient's noncompliance with other medical treatment and regimen; K76.0 Fatty (change of) liver, not elsewhere classified; I25.2 Old myocardial infarction
CPT/HCPCS: 36415; 36600; 70450-TC; 71045-TC; 71250-TC; 72125-TC; 75574; 80048-TC; 80053-TC; 80076-TC; 80202-TC; 80305; 81000-TC; 82140-TC; 82550-TC; 82553; 82947-TC; 82962-TC; 83605-TC; 83735-TC; 84100-TC; 84484-TC; 85025-TC; 85730-TC; 87040-TC; 87081-TC; 87086-TC; 93307-TC; 97112-TC; 97530-TC; A9563; G0378; G0480; J1644; J1815; J2185; J2405; J2543; J3370; J3475; J3480; J3490; J7030; J7040; J7050; J7060; J7070; Q9967

== ENCOUNTER 2020-02-26 15:33 | Inpatient (IN) | payer OTHER ==
[~2020-02-26] VITALS: Ht 170.2 cm; Wt 90.7 kg
[~2020-02-26 15:33] MED LIST changes: +*INS REG SQ; -AMLO5TAB9 PO; +AMOX-430 PO; -ASPI-1152 PO; +ASPI-1420 PO; +CARV12.52 PO; -INSU100V7 SQ; +Insulin Glargine,Hum SQ; +MUPI22OI7; +SERT50TA PO
--- NOTE | 2020-02-26 15:42 | NUR ---
MONA 878 FROM [facility] C/O FAILURE TO THRIVE "HE IS REFUSING EVERYTHING" PATIENT A/OX2-3 BREATHING EVEN AND UNLABORED, NO SOB NOTED, NEEDS ATTENDED, KEPT COMFORTABLE. WILL CONTINUE TO MONITOR.
--- NOTE | 2020-02-26 16:11 | NUR ---
EMOTIONAL SUPPORT TEACHER AT BEDSIDE FOR BLOOD DRAW. PATIENT GIVEN A URINAL FOR A URINE SAMPLE.
[2020-02-26 16:27] LABS: BASOPHILS % (AUTO) 0.6 % (0.0-2.0); EOSINOPHILS % (AUTO) 2.2 % (0.0-6.0); HEMATOCRIT 46 % (39-51); HEMOGLOBIN 15.2 g/dL (13.5-17.5); LYMPHOCYTES # (AUTO) 1.2 /CMM (0.8-4.8); LYMPHOCYTES % (AUTO) 18.3 % (20.0-44.0); MEAN CORPUSCULAR HGB CONC 33 g/dl (31.0-36.0); MEAN CORPUSCULAR VOLUME 93 fL (80-96); MONOCYTES # (AUTO) 0.6 /CMM (0.1-1.30); MONOCYTES % (AUTO) 9.8 % (2.0-12.0); NEUTROPHILS # (AUTO) 4.4 /CMM (1.8-8.9); NEUTROPHILS % (AUTO) 69.1 % (43.0-81.0); PLATELET COUNT (AUTO) 151 /CMM (150-450); RED BLOOD CELL COUNT(AUTO) 4.98 MIL/uL (4.5-6.0); WHITE BLOOD COUNT (AUTO) 6.4 K/uL (4.3-11.0)
--- NOTE | 2020-02-26 16:40 | NUR ---
PATIENT IS INCONTINENT, STRAIGHT CATHETER USED VIA STERILE TECHNIQUE, URINE SAMPLE SENT. AWARE.
[2020-02-26 16:46] LABS: APPEARANCE,URINE Clear (CLEAR); BILIRUBIN,URINE Negative (NEGATIVE); BLOOD, URINE Negative Ery/uL (NEGATIVE); COLOR,URINE Yellow (YELLOW); KETONES,URINE Negative (NEGATIVE); LEUKOCYTE ESTERASE ,URINE Negative (NEGATIVE); NITRITE, URINE Negative (NEGATIVE); PROTEIN,URINE Negative (NEGATIVE); UGLUCOSE 500 MG/DL mg/dL (NEGATIVE); UROBILINOGEN,URINE 0.2 EU/dL (0.2)
[2020-02-26 16:58] LABS: CALCIUM, SERUM 9.5 mg/dL (8.5-10.1); CARBON DIOXIDE 26 mmol/L (21-32); CHLORIDE 96 mmol/L (98-107); CREATININE 1.2 mg/dL (0.6-1.3); POTASSIUM 4.3 mmol/L (3.5-5.1); SODIUM SERUM 134 mmol/L (136-145); UREA NITROGEN, BLOOD 29 mg/dL (7-18)
[2020-02-26 16:59] LABS: GLUCOSE 469 mg/dL (74-106)
--- NOTE | 2020-02-26 16:59 | NUR ---
LAB CALLED GLUCOSE 469
[2020-02-26 17:01] LABS: ALANINE AMINOTRANSFERASE 29 U/L (12-78); ALBUMIN 3.5 g/dL (3.4-5.0); ALCOHOL, BLOOD < 3 mg/dL (0-0); ALKALINE PHOSPHATASE 109 U/L (46-116); ASPARTATE AMINOTRANSFERASE 11 U/L (15-37); BILIRUBIN,DIRECT 0.2 mg/dL (0.0-0.2); BILIRUBIN,TOTAL 0.5 mg/dL (0.2-1.0); TOTAL PROTEIN, SERUM 7.4 g/dL (6.4-8.2)
[2020-02-26 17:01] LABS: BACTERIA,URINE Few /HPF (None Seen); RBC,URINE 0-2 /HPF (0-2); SQUAMOUS EPITHELIAL CELL,UR Few /HPF (None Seen); WBC,URINE 0-2 /HPF (0-3)
[2020-02-26 17:07] LABS: SALICYLATE 0.5 mg/dL (2.8-20.0)
[2020-02-26] MEDS ORDERED: IV NS 0.9% 500 ML BAG IV ONE (18:30)
[2020-02-26] MEDS ORDERED: QUET25TA PO (19:16)
[2020-02-26] MEDS ORDERED: ATOR40TA PO (19:16)
[2020-02-26] MEDS ORDERED: HYDR-4075 PO (19:16)
[2020-02-26] MEDS ORDERED: VALS160T2 PO (19:16)
[2020-02-26] MEDS ORDERED: ASPI-1420 PO (19:16)
[2020-02-26] MEDS ORDERED: DIVA250T4 PO (19:16)
--- NOTE | 2020-02-26 19:22 | NUR ---
COVID SWAB COLLECTED AND SENT TO LAB
--- NOTE | 2020-02-26 20:06 | NUR ---
LAB CALLED REGARDING NEGATIVE COVID RESULT.
--- NOTE | 2020-02-26 20:18 | NUR ---
NOTED HYPERTENSION, AWARE
--- NOTE | 2020-02-26 20:29 | NUR ---
BED ASSIGNMENT 214-B
--- NOTE | 2020-02-26 20:51 | NUR ---
CHEY SCHMIDW PAGED FOR PSYCH EVAL.
--- NOTE | 2020-02-26 22:00 | NUR ---
CHEY ANAESTHESIOLOGIST AT BEDSIDE FOR PSYCH EVAL.
--- NOTE | 2020-02-26 22:40 | NUR ---
REPORT GIVEN TO ERNIE TODD FOR LARS
--- NOTE | 2020-02-26 23:02 | NUR ---
PT TRANSFERRED TO [facility] IN STABLE CONDITION. IV removed. Catheter intact and site benign. Pressure and 4x4 applied to site. No bleeding noted.
[2020-02-26] MEDS ORDERED: BLOOD SUGAR DIAGNOSTIC 1 EACH STRIP IN ONE (23:30)
[2020-02-26] MEDS ORDERED: TEMAZEPAM 7.5 MG CAPSULE PO PRN (23:30)
[2020-02-26] MEDS ORDERED: MAG HYDROX/AL HYDROX/SIMETH 30 ML UDC PO PRN (23:30)
[2020-02-26] MEDS ORDERED: LORAZEPAM 0.5 MG TABLET PO PRN (23:30)
[2020-02-26] MEDS ORDERED: ACETAMINOPHEN 325 MG TABLET PO PRN (23:30)
[2020-02-26] MEDS ORDERED: MAGNESIUM HYDROXIDE 30 ML UDC PO PRN (23:30)
--- NOTE | 2020-02-26 23:30 | NUR ---
RN NOTE: CALLED DR. MITCHELL OFFICE EXCHANGE REGARDING ABOUT [facility], SPOKE WITH BUMP GRADER OPERATOR FOR DR. MITCHELL , PER BUMP GRADER OPERATOR FOLLOW UP WITH DR. MITCHELL IN THE MORNING, BUMP GRADER OPERATOR NO NEW ORDER GIVEN .
[2020-02-27 01:18] VITALS: BP 132/78
--- NOTE | 2020-02-27 01:42 | NUR ---
ADMISSION NOTES: ADMITTED THIS 74Y/O MALE PATIENT ADMIT FROM [facility] ED/ INTIALLY FROM HOME, ADMITTED TO GPS, PT. IS ON 5150 HOLD PER HOLD, GRAVELY DISABLED, CONFUSED UNCOOPERTIVE WHILE AT HOME HIS HOME HEALTH NURSE CALLED 911 FOR FAILURE TO THRIVE , REFUSING ALL MEDICATIONS AND HAS NOT MANAGEABLE AT HOME ,UPON FACE TO FACE ASSESSMENT PATIENT IS A&O X 1,2 AGGRESSIVE,EASILY AGITATED,DISHELVED AND UNKEMPT DELUSIONAL ,PARANOID , DISORGNIZED ,DISHELVED ,EASILY GETS AGITATED, UNCOPOPERTIVE,UNPREDICATBLE , PT. IS POOR HISTORIAN, POOR INSIGHT ,POOR JUDGEMENT , PT. REFUSED TO SIGNS ADMISSION CONSENT PAPERS , DUE TO MENTAL STATUS ANXIOUS/UNCOOPERTIVE, BOTH MD AWARE AND NOTIFIED OF THE ADMISSION, BELONGINGS CONTRABAND WERE DONE ,PT. RIGHTS DISCUSS BY CREDIT CARD CONTROL CLERK , PROVIDE THE PT. WITH HANDBOOK, AND MEDICATIONS GUIDE, ENVIRONMENTAL SAFETY CHECK DONE, ENCOURAGED PT. VERBALIZED ANY FEELING CONCERN TO STAFF, ORIENT TO UNIT POLICY, NO ACUTE DISTRESS NOTED,VITAL SIGNS WNL ,DENIES ANY PAIN AT THIS TIME,WILL CONTINUE TO MONITOR FOR Q15 SAFETY AND BEHAVIOR.
--- NOTE | 2020-02-27 02:04 | NUR ---
ANXIETY PT.NOTED VERY ANXIOUS, PARANOID,UNCOOPERTIVE, ATIVAN 0.5 MG PO PRN GIVEN PER ORDER ,WILL CONTINUE MONITORING FOR SAFETY AND BEHAVIOR Q 15 MIN.
[2020-02-27] MEDS ORDERED: BLOOD SUGAR DIAGNOSTIC 1 EACH STRIP IN SCH (07:30)
[2020-02-27 08:00] VITALS: BP 149/75
[2020-02-27 08:30] LABS: CREATININE 0.8 mg/dL (0.6-1.3)
--- NOTE | 2020-02-27 09:00 | NUR ---
RN NOTE- PT CONFUSED DENIES SI HI [facility] STATES " PUT ME IN HERE" ALERT ORIENTED TO PERSON PLACE PO INTAKE GOOD ACCU CHECK BS HIGH. MONITORING VS / ACCU CHECKS. NO BEHAVIORAL PROBLEMS AT THIS TIME
[2020-02-27] MEDS ORDERED: *INSULIN REGULAR(HUMULIN R)HUM 100 UNIT/ML VIAL SQ PRN (09:30)
[2020-02-27] MEDS ORDERED: DEXTROSE 50%-WATER 50 ML DISP.SYRIN IV PRN (09:30)
[2020-02-27] MEDS ORDERED: VALSARTAN 80 MG TABLET PO SCH (10:00)
[2020-02-27] MEDS ORDERED: ASPIRIN EC 81 MG TABLET.DR PO SCH (10:00)
[2020-02-27] MEDS: INSULIN REGULAR, HUMAN 100 UNIT/ML 3 ML VIAL SQ PRN ×2 (11:55→17:32)
[2020-02-27] MEDS: BLOOD SUGAR DIAGNOSTIC 1 EACH STRIP VI SCH ×2 (11:56→17:23)
--- NOTE | 2020-02-27 12:09 | NUR ---
WOUND CARE CONSULT: PT REFUSED SKIN ASSESSMENT. SKIN DISCOLORATION NOTED TO LOWER LEGS, PRESENT ON ADMISSION. WILL SEE PRN.
[2020-02-27] MEDS: DIVALPROEX SODIUM 125 MG CAP.SPRINK PO SCH ×2 (12:31→16:57)
[2020-02-27] MEDS ORDERED: INSULIN GLARGINE, 100 UNIT/ML CARTRIDGE SQ SCH (13:00)
[2020-02-27] MEDS ORDERED: hydrALAZINE HCL 10 MG TABLET PO SCH (13:00)
--- NOTE | 2020-02-27 13:03 | NUR ---
RN NOTE- PT W ACCU CHECK OF BS-442. PT ON MODERATE SSI, 15 U SSI GIVEN. RECHECKED TO CALL MD. BS- 524. ACCU CHECK DONE AFTER ONE HOUR. BS -443. DR MITCHELL NOTIFIED . HE ORDERED LANTUS 20 QD. FIRST DOSE NOW. COMPLIED
[2020-02-27] MEDS ORDERED: INSULIN GLARGINE, 100 UNIT/ML CARTRIDGE SQ STA (14:55)
--- NOTE | 2020-02-27 14:55 | NUR ---
RN NOTE- TECHNICAL SUPPORT REPRESENTATIVE RECHECKED ACCU CHECK BS- 511. DR MITCHELL NOTIFIED EXPLAINED SITUATION. DR MITCHELL ORDERED LANTUS 20 U X ONE DOSE NOW. REVIEWED INSULIN GIVEN THUS FAR AND CONFIRMED ORDER. COMPLYING. WILL RECHECK IN TWO HOURS.
[2020-02-27 16:00] VITALS: BP 137/90
--- NOTE | 2020-02-27 16:10 | NUR ---
ESTEBAN Initial Discharge Plan: Patient currently resides at home with Barry at [address], [place] [address]; ([phone]). This policy writer contacted patient's Barry ([phone]) and left a voicemail to call this policy writer back to discuss discharge plan and treatment plan. ESTEBAN will coordinate with treatment team, MD, and family to help coordinate proper discharge plan.
--- NOTE | 2020-02-27 16:10 | NUR ---
SW Family Contact: This information writer contacted patient's Barry ([phone]) and left a voicemail to call this information writer back to discuss discharge plan and treatment plan.
--- NOTE | 2020-02-27 17:10 | NUR ---
RN NOTE- PT ACCU CHECK BS- 512. DR MITCHELL NOTIFIED THAT PT STILL HYPERGLYCEMIC. DR MITCHELL ORDERED PT TO RECEIVE THE 15 U SSI REG INSULIN AND TRANSFER TO MED SURG UNIT. CENTRAL PROCESSING TECHNICIAN AND HOUSE SUP NOTIFIED.
--- NOTE | 2020-02-27 18:33 | NUR ---
RN NOTE- DISCHARGE READIED. PT SIGNED DCDAVID ORDERED WELL. DR JOHNSON AWARE AND ORDERS TO CONTINUE CURRENT PLAN OF CARE AND HOLD IN PLACE.
--- NOTE | 2020-02-27 18:48 | NUR ---
RN NOTE- ACCU CHECK BS 417. PASSING ON TO NOC SHIFT W REPORT AND TRANSFER ORDERS
--- NOTE | 2020-02-27 19:45 | NUR ---
GPS RN NOTES: REPORT GIVEN TO ERNIE ESTRADA FOR LARS
[2020-02-27 19:46] VITALS: BP 137/71
--- NOTE | 2020-02-27 19:49 | NUR ---
Received report from ERNIE Giordano for LARS.
--- NOTE | 2020-02-27 20:09 | NUR ---
GPS RN NOTES: TRANSFER PT TO [facility] ROOM 114. PT BREATHING EVEN AND UNLABORED. NO SOB. NO RESPIRATORY DISTRESS. NO PAIN AT THIS TIME. EXPLAIN TO PT TRANSFER. GAVE HOLD TO ERNIE ESTRADA.
[2020-02-27] MEDS ORDERED: QUETIAPINE FUMARATE 25 MG TABLET PO SCH (21:00)
[2020-02-27] MEDS ORDERED: ATORVASTATIN 40 MG TABLET PO SCH (22:00)
--- NOTE | 2020-02-29 08:24 | NUR ---
ESTEBAN Discharge to Med Floor: Patient was discharged from MHU and was transferred to Medical Floor due to low blood pressure. Patient resides at [address] [place] [address]. [place] [address]; ([phone]). This check writer salesperson contacted patient's Barry ([phone]) and left a voicemail to discuss discharge plan, however, she was unavailable and did not reach this check writer salesperson back. Per Dr. Mendieta, pt will require a SNF. Addendum: 02/29/20 at [address] Mendieta discontinued hold.
== END 2020-02-27 20:20 | disposition short-term general hospital (02) | DRG 885 ==
LOC: ER 15:43 → GPS 20:40
PROVIDERS: ADMIT Psychiatry & Neurology Psychosomatic Medicine; ATTEND Internal Medicine
DX: F25.0 Schizoaffective disorder, bipolar type (principal); E11.65 Type 2 diabetes mellitus with hyperglycemia; I10 Essential (primary) hypertension; R62.7 Adult failure to thrive; E78.5 Hyperlipidemia, unspecified; F09 Unspecified mental disorder due to known physiological condition; Z68.31 Body mass index [BMI] 31.0-31.9, adult
CPT/HCPCS: 36415; 71045-TC; 80048-TC; 80061-TC; 80076-TC; 80305; 81000-TC; 82565-TC; 82962-TC; 84484-TC; 85025-TC; 87081-TC; 97116-TC; 97530-TC; C9803-CS; G0480; J1815; J7030; J7040

== ENCOUNTER 2020-02-27 18:10 | Inpatient (IN) | payer MEDICARE, OTHER ==
[~2020-02-27] VITALS: Ht 170.2 cm; Wt 86.6 kg
[~2020-02-27 18:10] MED LIST changes: -*INS REG SQ; -AMOX-430 PO; -CARV12.52 PO; +DIVA250T4 PO; +HYDR-4075 PO; -INSU100V28 SQ; -Insulin Glargine,Hum SQ; -MUPI22OI7; +QUET25TA PO; -SERT50TA PO; +VALS160T2 PO
[2020-02-27] MEDS ORDERED: INSULIN GLARGINE, 100 UNIT/ML CARTRIDGE SQ ONE (20:00)
[2020-02-27] MEDS ORDERED: MAGNESIUM HYDROXIDE 30 ML UDC PO PRN (20:32)
[2020-02-27] MEDS ORDERED: LORAZEPAM 0.5 MG TABLET PO PRN (20:32)
[2020-02-27] MEDS ORDERED: TEMAZEPAM 7.5 MG CAPSULE PO PRN (20:32)
[2020-02-27] MEDS ORDERED: MAG HYDROX/AL HYDROX/SIMETH 30 ML UDC PO PRN (20:32)
[2020-02-27] MEDS ORDERED: *INSULIN REGULAR(HUMULIN R)HUM 100 UNIT/ML VIAL SQ PRN (20:32)
[2020-02-27] MEDS ORDERED: INSULIN GLARGINE, 100 UNIT/ML CARTRIDGE SQ SCH ×2 (20:32→22:00)
[2020-02-27] MEDS ORDERED: DEXTROSE 50%-WATER 50 ML DISP.SYRIN IV PRN (20:32)
[2020-02-27] MEDS ORDERED: ACETAMINOPHEN 325 MG TABLET PO PRN (20:32)
[2020-02-27 21:02] VITALS: BP 121/64
--- NOTE | 2020-02-27 21:32 | NUR ---
M/S CONDEMNATION ENGINEER NOTE: Pt transferred to unit via wheelchair with RN and SUPERVISOR SCREEN MAKING from GPS unit. Admit dx: uncontrollable DM. On 5150 hold. A&Ox2, speaks Welsh. On room air, O2 sat WNL. No IV site noted. Pt noted w/ unstable gait. Able to ambulate w/ assistance. W/ 1:1 sitter at bedside. Physical assessment and skin check done. Bed bath given. Oriented to room and call light. Dr. Calle aware of pt in unit. Rec'd orders for Lantus 20 units SQ x1 tonight and to start Lantus 30 units SQ BID tomorrow. Safety measures in place. Will continue to monitor.
[2020-02-27] MEDS: QUETIAPINE FUMARATE 25 MG TABLET PO SCH (21:39)
[2020-02-27] MEDS: ATORVASTATIN 40 MG TABLET PO SCH (21:39)
[2020-02-27] MEDS: hydrALAZINE HCL 10 MG TABLET PO SCH (21:42)
[2020-02-27] MEDS: INSULIN REGULAR, HUMAN 100 UNIT/ML 3 ML VIAL SQ PRN (21:50)
[2020-02-27] MEDS: BLOOD SUGAR DIAGNOSTIC 1 EACH STRIP VI SCH (21:50)
[2020-02-28 04:00] VITALS: BP 135/63
[2020-02-28] MEDS: hydrALAZINE HCL 10 MG TABLET PO SCH ×3 (04:30→21:47)
--- NOTE | 2020-02-28 04:34 | NUR ---
RN NOTE: Pt refused 0400 temp check. Explained importance of checking vitals and continued to refuse. Wishes noted, will continue to monitor.
--- NOTE | 2020-02-28 06:42 | NUR ---
M/S RN CLOSING NOTES: Pt remained stable throughout shift. No acute changes noted. Remains on room air. No SOB or resp distress noted throughout shift. [address] 1:1 sitter at bedside. No IV site. All meds administered as ordered. Safety measures in place. Will endorse to AM nurse for LARS.
[2020-02-28] MEDS: BLOOD SUGAR DIAGNOSTIC 1 EACH STRIP VI SCH ×3 (07:30→17:04)
[2020-02-28 08:00] VITALS: BP 117/68
[2020-02-28] MEDS: ASPIRIN EC 81 MG TABLET.DR PO SCH (09:40)
[2020-02-28] MEDS: DIVALPROEX SODIUM 125 MG CAP.SPRINK PO SCH ×3 (09:40→17:01)
[2020-02-28] MEDS: VALSARTAN 80 MG TABLET PO SCH (09:54)
[2020-02-28 12:00] VITALS: BP 145/74
[2020-02-28] MEDS: INSULIN REGULAR, HUMAN 100 UNIT/ML 3 ML VIAL SQ PRN (12:37)
--- NOTE | 2020-02-28 13:30 | NUR ---
Pt was received with a sitter at bedside, remains on 5150 hold. Pt is alert and ox2, mostly ccoperative, but refused 0800 fingerstick for BS. At 1200 FS was 529 mg/dl, asymptomatic. Gave 15units Regular insulin, Shelton Huggins NP made aware of BS. Shelton Doan NP also made of no VTE prophylaxis at this time.
--- NOTE | 2020-02-28 14:45 | NUR ---
PATIENT AWAKE AND REFUSED TO HAVE CT SCAN,MD AWARE.
[2020-02-28 14:52] LABS: BASOPHILS % (AUTO) 0.5 % (0.0-2.0); EOSINOPHILS % (AUTO) 2.8 % (0.0-6.0); HEMATOCRIT 46 % (39-51); HEMOGLOBIN 15.1 g/dL (13.5-17.5); LYMPHOCYTES # (AUTO) 0.9 /CMM (0.8-4.8); LYMPHOCYTES % (AUTO) 16.3 % (20.0-44.0); MEAN CORPUSCULAR HGB CONC 33 g/dl (31.0-36.0); MEAN CORPUSCULAR VOLUME 92 fL (80-96); MONOCYTES # (AUTO) 0.5 /CMM (0.1-1.30); MONOCYTES % (AUTO) 8.5 % (2.0-12.0); NEUTROPHILS # (AUTO) 4.1 /CMM (1.8-8.9); NEUTROPHILS % (AUTO) 71.9 % (43.0-81.0); PLATELET COUNT (AUTO) 141 /CMM (150-450); RED BLOOD CELL COUNT(AUTO) 4.98 MIL/uL (4.5-6.0); WHITE BLOOD COUNT (AUTO) 5.7 K/uL (4.3-11.0)
[2020-02-28 15:08] LABS: CARBON DIOXIDE 24 mmol/L (21-32); CHLORIDE 99 mmol/L (98-107); POTASSIUM 4.4 mmol/L (3.5-5.1); SODIUM SERUM 136 mmol/L (136-145); UREA NITROGEN, BLOOD 15 mg/dL (7-18)
[2020-02-28 15:13] LABS: CHOLESTEROL 170 mg/dL (<200); HDL CHOLESTEROL 38 mg/dL (40-60); LDL 88 mg/dL (0-99); TRIGLYCERIDES 327 mg/dL (30-150)
[2020-02-28 15:14] LABS: ALANINE AMINOTRANSFERASE 28 U/L (12-78); ALBUMIN 3.3 g/dL (3.4-5.0); ALKALINE PHOSPHATASE 70 U/L (46-116); ASPARTATE AMINOTRANSFERASE 16 U/L (15-37); BILIRUBIN,TOTAL 0.6 mg/dL (0.2-1.0); GLUCOSE 489 mg/dL (74-106); MAGNESIUM 2.4 mg/dL (1.8-2.4); PHOSPHORUS 3.1 mg/dL (2.5-4.9)
[2020-02-28 15:36] LABS: VALPROIC ACID 18 ug/mL (50-100)
[2020-02-28] MEDS: INSULIN GLARGINE, 100 UNIT/ML CARTRIDGE SQ SCH (17:03)
--- NOTE | 2020-02-28 18:26 | NUR ---
1510 pt had a critical glucose level of 489, pt is asymptomatic. Attempted to contact Shelton Doan NP through the [employer] system was no response. 1730 due insulin and Lantus were given as ordered. Fingerstick was 349 mg/dl. Pt has been refusing procedures like the CT scan of head and EKG, Shelton Doan NP is aware. Pt was okay to take the insulin shots and take fingerstick for lunch and dinner. Had a critical 1814 sliding scale was changed to aggressive scale, will give report to [facility] for LARS. Addendum: 02/28/20 at 1831 by MARILYN MARQUES RN Hold was discontinued, sitter remains at bedside for now. Pt has been calm and mostly pleasant.
[2020-02-28] MEDS ORDERED: DEXTROSE 50%-WATER 50 ML DISP.SYRIN IV PRN (18:30)
--- NOTE | 2020-02-28 19:20 | NUR ---
RN OPENING NOTES RECEIVED PT ON BED AWAKE ON ROOM AIR SPO2 98% SITTER ON BED SIDE PT KEEP ON STANDING AND GETTING OUT OF BED BUT HE IS VERY UNSTEADY,5150 HOLD WAS D/C THIS AFTERNOON BY PSYCH DOCTOR, NO COMPLAINT OF PAIN CHRISTOS, SAFETY MEASURE MAINTAINED BED ON LOWEST POSITION AND LOCKED, SIDE RAILS UPX 2 MAINTAIN SITTER AT BED SIDE WILL CONT TO MONITOR
[2020-02-28 20:00] VITALS: BP 147/71
[2020-02-28] MEDS: ATORVASTATIN 40 MG TABLET PO SCH (21:46)
[2020-02-28] MEDS: QUETIAPINE FUMARATE 25 MG TABLET PO SCH (21:47)
[2020-02-28] MEDS: BLOOD SUGAR DIAGNOSTIC 1 EACH STRIP IN SCH (21:48)
[2020-02-28] MEDS: *INSULIN REGULAR(HUMULIN R)HUM 100 UNIT/ML VIAL SQ PRN (21:50)
[2020-02-29 04:00] VITALS: BP 156/67
[2020-02-29] MEDS: hydrALAZINE HCL 10 MG TABLET PO SCH ×3 (04:26→21:12)
[2020-02-29 06:31] LABS: BASOPHILS % (AUTO) 0.7 % (0.0-2.0); EOSINOPHILS % (AUTO) 3.8 % (0.0-6.0); HEMATOCRIT 46 % (39-51); LYMPHOCYTES # (AUTO) 1.3 /CMM (0.8-4.8); LYMPHOCYTES % (AUTO) 24.1 % (20.0-44.0); MEAN CORPUSCULAR HGB CONC 33 g/dl (31.0-36.0); MEAN CORPUSCULAR VOLUME 91 fL (80-96); MONOCYTES # (AUTO) 0.6 /CMM (0.1-1.30); MONOCYTES % (AUTO) 10.7 % (2.0-12.0); NEUTROPHILS # (AUTO) 3.4 /CMM (1.8-8.9); NEUTROPHILS % (AUTO) 60.7 % (43.0-81.0); PLATELET COUNT (AUTO) 153 /CMM (150-450); RED BLOOD CELL COUNT(AUTO) 5.01 MIL/uL (4.5-6.0); WHITE BLOOD COUNT (AUTO) 5.6 K/uL (4.3-11.0)
[2020-02-29 06:46] LABS: CALCIUM, SERUM 8.8 mg/dL (8.5-10.1); CREATININE 0.8 mg/dL (0.6-1.3); MAGNESIUM 2.4 mg/dL (1.8-2.4); PHOSPHORUS 3.1 mg/dL (2.5-4.9); POTASSIUM 3.6 mmol/L (3.5-5.1)
--- NOTE | 2020-02-29 06:59 | NUR ---
RN CLOSING NOTES PT SLEEPING ON BED NO SIGN AND SYMPTOMS OF DISTRESS, SITTER AT BEDSIDE, NO SIGNIFICANT CHANGES ON CONDITION NOTED ALL NEEDS ATTENDED, SAFETY MEASURE MAINTAINED BED ON LOWEST POSITION AND MIKO CALL LIGHT WITHIN REACH WILL CONT TO MONITOR
--- NOTE | 2020-02-29 07:20 | NUR ---
RN OPENING NOTE Received patient asleep in bed appears calm and relaxed no signs of distress. On room air. AO x2 shows signs of irritability. Patient is verbal. No co pain or discomfort. Noted with BLE discoloration pedal pulse present. Safety measures reinforced. Bed locked and on lowest position. Call light within reach. Will cont to monitor.
[2020-02-29 08:00] VITALS: BP 155/71
[2020-02-29] MEDS: VALSARTAN 80 MG TABLET PO SCH (08:11)
[2020-02-29] MEDS: BLOOD SUGAR DIAGNOSTIC 1 EACH STRIP IN SCH ×4 (08:11→21:12)
[2020-02-29] MEDS: DIVALPROEX SODIUM 125 MG CAP.SPRINK PO SCH ×3 (08:11→16:59)
[2020-02-29] MEDS: ASPIRIN EC 81 MG TABLET.DR PO SCH (08:11)
[2020-02-29] MEDS: INSULIN GLARGINE, 100 UNIT/ML CARTRIDGE SQ SCH ×2 (08:12→17:19)
[2020-02-29] MEDS: INSULIN REGULAR, HUMAN 100 UNIT/ML 3 ML VIAL SQ PRN ×3 (08:13→17:20)
--- NOTE | 2020-02-29 08:22 | NUR ---
ESTEBAN Note: Patient was discharged from MHU and was transferred to Medical Floor due to low blood pressure. Patient resides at [address] [place] [address]. [place] [address]; ([phone]). This telegraphic typewriter operator contacted patient's Barry ([phone]) and left a voicemail to discuss discharge plan, however, she was unavailable and did not reach this telegraphic typewriter operator back. Per Dr. Mendieta, pt will require a SNF. Addendum: 02/29/20 at [address] Mendieta discontinued hold.
--- NOTE | 2020-02-29 12:14 | NUR ---
spoke to sister she thought pt will be discharged today. informed her sw tried to call family. gave fab (poly) phone number of daksha Lopez [phone].
--- NOTE | 2020-02-29 15:37 | NUR ---
MS/RN NOTE Received report from ERNIE Baumna. Patient is A&O x 2, able to make needs known. Denies any pain and discomfort at this time. Breathing even and non-labored on RA, no SOB noted. No cardiac distress noted. Sensation from all peripheral extremities intact. Bed locked to its lowest position, side rails x 2 up, bed alarm on, call light in reach. Instructed patient to use call light when in need of any assistance. Will continue with current medical management.
--- NOTE | 2020-02-29 15:37 | NUR ---
PATIENT IN BED RESTING NO SIGNS OF DISTRESS. ENDORSED TO MILAGROS.
[2020-02-29 16:00] VITALS: BP 113/70
--- NOTE | 2020-02-29 16:34 | NUR ---
PER JONO VAZQUEZ PT. NEED TRANSFER TO [place] FOR HIGHER LEVEL OF CARE R/T HYDROCEPHALUS,PER MANDY RAMIREZ NO BED YET WORKING ON IT AND WILL LET FAMILY KNOW ONCE BED AVAILABLE.
--- NOTE | 2020-02-29 18:37 | NUR ---
MS/RN CLOSING NOTE Patient resting in bed, watching TV, remains stable. All needs are met and attended to. No s/s of hypo/hyperglycemia noted. VSS, afebrile, denies any pain and discomfort. Breathing even and non-labored on RA. No cardiac distress noted. Sensation from all peripheral extremities remain intact. Patient is ambulatory with assist, instructed to use call light when in need of assistance. Fall precautions maintained. Will endorse to restaurant shift leader nurse.
[2020-02-29] MEDS ORDERED: QUET25TA PO (18:54)
[2020-02-29] MEDS ORDERED: Insulin Glargine,Hum SQ ×2 (18:54)
[2020-02-29] MEDS ORDERED: INSU100V28 SQ (18:54)
[2020-02-29] MEDS ORDERED: *INS REG3 SQ (18:54)
[2020-02-29] MEDS ORDERED: DIVA125C2 PO (18:54)
--- NOTE | 2020-02-29 19:30 | NUR ---
MS RN NOTES RECEIVED ON BED A/O X1-2,BREATHING REGULAR,NOT IN ANY FORM OF DISTRESS,WITH SITTER,ORIGINALLY [address]CONTINUED BY DR JOHNSON,NO IV ACCESS,MD AWARE.PER REPORT,PATIENT EASILY GETS AGITATED.FALL PRECAUTION OBSERVED,BED ON LOWEST POSITION AND LOCKED.POSSIBLE TRANSFER TO HIGH LEVEL OF CARE DUE TO HEAD CT RESULT,MODERATE TO SEVERE VENTRICULOMEGALY,AWAITING FOR ROOM AT [facility].WILL CONTINUE TO MONITOR STATUS.
[2020-02-29 19:46] VITALS: BP 149/84
--- NOTE | 2020-02-29 21:00 | NUR ---
MS RN NOTES ALL DUE PO MEDS GIVEN,NEGATIVE FOR ASPIRATION,TAKEN WELL.
--- NOTE | 2020-02-29 21:00 | NUR ---
MS RN NOTES ACCU-CHECK BLOOD SUGAR CHECK TAKEN EARLY PER PATIENT REQUEST AND IT WAS 249,COVERED WITH HUMULIN R 4 UNITS PER SLIDING SCALE.
[2020-02-29] MEDS: QUETIAPINE FUMARATE 25 MG TABLET PO SCH (21:12)
[2020-02-29] MEDS: ATORVASTATIN 40 MG TABLET PO SCH (21:12)
[2020-02-29] MEDS: *INSULIN REGULAR(HUMULIN R)HUM 100 UNIT/ML VIAL SQ PRN (21:15)
--- NOTE | 2020-02-29 22:32 | NUR ---
MS RN NOTES DIOGENES FROM TRANSPORT CENTER CALLED INFORMING NURSE THAT PATIENT HAS ROOM ALREADY AT [facility] AND THAT PATIENT HAS TO BE NURSING PROJECT COORDINATOR BY AMBULANCE VIA ACLS PROTOCOL.ROOM NUMBER 4415-1,TELEMETRY UNIT.
--- NOTE | 2020-02-29 22:45 | NUR ---
MS RN NOTES INFORMED FAMILY MEMBER NAME CHENCHO BEGUM REGARDING TRASNFER OF PATIENT TO HIGHER LEVEL OF CARE,THE REASON,AND HOW TRANSPORT GONNA BE.
--- NOTE | 2020-02-29 23:15 | NUR ---
MS RN NOTES SPOKE TO TAMMYRN AT TELEMETRY UNIT AT [facility],GAVE REPORT REGARDING PATIENT STATUS.
[2020-03-01] VITALS: BP 140/80
--- NOTE | 2020-03-01 00:15 | NUR ---
MS RN NOTES PICKED UP BY [facility] VIA ACLS PROTOCOL, GOING TO [facility] IN STABLE CONDITION.VITAL SIGNS WITH IN NORMAL LIMITS.BELONGINGS GIVEN.
== END 2020-03-01 00:15 | disposition short-term general hospital (02) | DRG 57 ==
LOC: TELE-TD 18:10 → MEDSG1 18:52
PROVIDERS: ADMIT Hospitalist; ATTEND Hospitalist
DX: G91.2 (Idiopathic) normal pressure hydrocephalus (principal); E44.1 Mild protein-calorie malnutrition; E11.65 Type 2 diabetes mellitus with hyperglycemia; R62.7 Adult failure to thrive; Z79.4 Long term (current) use of insulin; I25.10 Atherosclerotic heart disease of native coronary artery without angina pectoris; Z83.3 Family history of diabetes mellitus; Z91.14 Patient's other noncompliance with medication regimen; E78.5 Hyperlipidemia, unspecified; I10 Essential (primary) hypertension; Z86.73 Personal history of transient ischemic attack (TIA), and cerebral infarction without residual deficits; F25.0 Schizoaffective disorder, bipolar type; Z91.19 Patient's noncompliance with other medical treatment and regimen; I67.2 Cerebral atherosclerosis; Z98.890 Other specified postprocedural states; Z79.82 Long term (current) use of aspirin; Z79.899 Other long term (current) drug therapy; Z73.6 Limitation of activities due to disability; F01.50 Vascular dementia, unspecified severity, without behavioral disturbance, psychotic disturbance, mood disturbance, and anxiety; F29 Unspecified psychosis not due to a substance or known physiological condition; F94.0 Selective mutism; G93.89 Other specified disorders of brain
CPT/HCPCS: 36415; 70450-TC; 71045-TC; 80048-TC; 80053-TC; 80061-TC; 80164-TC; 82962-TC; 83735-TC; 84100-TC; 84484-TC; 85025-TC; 85730-TC; G0378; J1815

== ENCOUNTER 2020-03-07 16:54 | Inpatient (IN) | payer MEDICARE, OTHER ==
--- NOTE | 2020-03-04 20:00 | NUR ---
ERNIE NOTE MRSA SWAB DONE, [facility], CALLED LAB FOR MIDDLE OR INTERMEDIATE SCHOOL PRINCIPAL. Addendum: 03/08/20 at 2041 by TYSON COPE RN WRONG DATE ENTERED
[~2020-03-07] VITALS: Ht 170.2 cm; Wt 83.9 kg
[~2020-03-07 16:54] MED LIST changes: +*INS REG3 SQ; +DIVA125C2 PO; -DIVA250T4 PO; +INSU100V28 SQ; +Insulin Glargine,Hum SQ
[2020-03-07 19:30] VITALS: BP 138/79
[2020-03-07] MEDS ORDERED: MAG HYDROX/AL HYDROX/SIMETH 30 ML UDC PO PRN (19:30)
[2020-03-07] MEDS ORDERED: ONDANSETRON HCL/PF 4 MG/2 ML VIAL IVP PRN (19:30)
[2020-03-07] MEDS ORDERED: LORAZEPAM 1 MG TABLET PO PRN (19:30)
[2020-03-07] MEDS ORDERED: HYDROCODONE/APAP 5/325MG TABLET PO PRN (19:30)
[2020-03-07] MEDS ORDERED: Z GUARD REMEDY 2 OZ OINT TP PRN (19:30)
[2020-03-07] MEDS ORDERED: ACETAMINOPHEN 325 MG TABLET PO PRN (19:30)
[2020-03-07] MEDS ORDERED: DEXTROSE 50%-WATER 50 ML DISP.SYRIN IV PRN (19:30)
[2020-03-07] MEDS ORDERED: MAGNESIUM HYDROXIDE 30 ML UDC PO PRN (19:30)
[2020-03-07] MEDS ORDERED: CLONIDINE HCL 0.1 MG TABLET PO PRN (19:30)
--- NOTE | 2020-03-07 19:30 | NUR ---
RN NOTE PATIENT ARRIVED FROM [facility] VIA GURNEY AT THIS TIME. 74 Y/O MALE. DX OF HYDROCEPHALUS, FULL CODE STATUS. S/P TRUANT OFFICER SHUNT PLACEMENT. PATIENT IS AWAKE, ALERT, HAS PERIODS OF CONFUSION. ABLE TO MAKE NEEDS KNOWN IN [place]. SPEECH IS CLEAR. BREATHING IS EVEN AND UNLABORED, O2 SAT IS 98% ON ROOM AIR. NO COMPLAINTS OF PAIN AT THIS TIME. SKIN IS INTACT, DRY AND WARM TO TOUCH. NOTED SURGICAL WOUND ON RIGHT SIDE OF HEAD AND RIGHT UPPER ABDOMINAL QUADRANT. NO S/S OF INFECTION NOTED. IV SITE ON DENISE MIDLINE IS CLEAN, DRY, AND PATENT. PATIENT IS ABLE TO AMBULATE TO BATHROOM WITH ASSISTANCE. BED IS LOWERED TO LOWEST POSITION FOR SAFETY. SITTER IS AT BEDSIDE. CALL LIGHT IS WITHIN EASY REACH. WILL CONTINUE TO MONITOR.
--- NOTE | 2020-03-07 20:00 | NUR ---
RN NOTE MRSA SWAB DONE, PLACED IN [facility] [place], CALLED LAB FOR JUTE BAG SEWER.
[2020-03-07] MEDS: QUETIAPINE FUMARATE 25 MG TABLET PO SCH (21:07)
[2020-03-07] MEDS: ATORVASTATIN 40 MG TABLET PO SCH (21:07)
[2020-03-07] MEDS: *INSULIN REGULAR(HUMULIN R)HUM 100 UNIT/ML VIAL SQ PRN (21:20)
[2020-03-07] MEDS: BLOOD SUGAR DIAGNOSTIC 1 EACH STRIP VI SCH (22:04)
--- NOTE | 2020-03-08 00:05 | NUR ---
RN NOTE PATIENT REFUSED 12AM VITALS. EXPLAINED RISKS OF NOT OBTAINING VITAL SIGNS, PATIENT STILL REFUSED. WILL CONTINUE TO MONITOR.
[2020-03-08 04:00] VITALS: BP 161/87
--- NOTE | 2020-03-08 06:35 | NUR ---
RN NOTE PATIENT REMAINED STABLE THROUGHOUT THE NIGHT. NO SIGNIFICANT CHANGES NOTED. DUE MEDS GIVEN AND TOLERATED WELL. PATIENT KEPT CLEAN, DRY, AND COMFORTABLE. ALL NEEDS ATTENDED AND MET. SITTER AT BEDSIDE. WILL ENDORSE TO AM SHIFT RN FOR CONTINUATION OF CARE.
[2020-03-08 06:58] LABS: BASOPHILS % (AUTO) 0.5 % (0.0-2.0); EOSINOPHILS % (AUTO) 1.8 % (0.0-6.0); HEMATOCRIT 45 % (39-51); HEMOGLOBIN 14.7 g/dL (13.5-17.5); LYMPHOCYTES # (AUTO) 1.1 /CMM (0.8-4.8); LYMPHOCYTES % (AUTO) 21.6 % (20.0-44.0); MEAN CORPUSCULAR HGB CONC 33 g/dl (31.0-36.0); MEAN CORPUSCULAR VOLUME 92 fL (80-96); MONOCYTES # (AUTO) 0.6 /CMM (0.1-1.30); MONOCYTES % (AUTO) 12.3 % (2.0-12.0); NEUTROPHILS # (AUTO) 3.4 /CMM (1.8-8.9); NEUTROPHILS % (AUTO) 63.8 % (43.0-81.0); PLATELET COUNT (AUTO) 135 /CMM (150-450); RED BLOOD CELL COUNT(AUTO) 4.83 MIL/uL (4.5-6.0); WHITE BLOOD COUNT (AUTO) 5.3 K/uL (4.3-11.0)
[2020-03-08 07:26] LABS: CALCIUM, SERUM 8.8 mg/dL (8.5-10.1); MAGNESIUM 2.2 mg/dL (1.8-2.4); PHOSPHORUS 3.1 mg/dL (2.5-4.9); POTASSIUM 4.4 mmol/L (3.5-5.1)
--- NOTE | 2020-03-08 07:44 | NUR ---
DRAFTER HEATING AND VENTILATING NOTE PATIENT IN BED, SLEEPING COMFORTABLY AT THIS TIME ,ON RA ,NO SOB NOTED AT THIS TIME,ON TELE MONITOR SR HR 72 ,ATMOSPHERIC PHYSICIST SHUNT INCISION RT SIDE HEAD\ABDOMEN ,RT UPPER ARM MID LINE IN PLACE AND FLUSHED WELL BED IN LOWEST AND LOCKED POSITION , SAFETY MEASURE OBSERVED WILL CONT TO MONITOR CLOSELY, CALL LIGHT WITHIN REACH
[2020-03-08] MEDS: BLOOD SUGAR DIAGNOSTIC 1 EACH STRIP VI SCH ×4 (07:55→22:44)
[2020-03-08 08:00] VITALS: BP 150/74
[2020-03-08] MEDS: DIVALPROEX SODIUM 125 MG CAP.SPRINK PO SCH ×3 (09:21→16:27)
[2020-03-08] MEDS: ASPIRIN EC 81 MG TABLET.DR PO SCH (09:21)
[2020-03-08] MEDS: hydrALAZINE HCL 10 MG TABLET PO SCH ×3 (09:22→16:28)
[2020-03-08] MEDS: CARVEDILOL 12.5 MG TABLET PO SCH ×2 (09:22→16:28)
[2020-03-08 12:00] VITALS: BP 154/74
--- NOTE | 2020-03-08 12:00 | NUR ---
telemetry rn note resting comfortably , rt galina at bedside, patient condition updated
[2020-03-08] MEDS: INSULIN REGULAR, HUMAN 100 UNIT/ML 3 ML VIAL SQ PRN ×2 (13:36→17:08)
--- NOTE | 2020-03-08 14:53 | NUR ---
television actor note keep clean dry, urinated well ,will cont to monitor closely
[2020-03-08 16:00] VITALS: BP 156/86
--- NOTE | 2020-03-08 17:12 | NUR ---
TELE R N NOTE BLOOD SUGAR 457 MG\DL 15 UNITS REGULAR INSULIN GIVEN ORDERED, CALLED TO DR MCCARTHY AND NOTIFIED ABOUT ACCU CHECK 457 MG\ DL NO NEW ORDER GIVEN AT THIS TIME
--- NOTE | 2020-03-08 18:32 | NUR ---
ELECTRICAL CONTACTS ADJUSTER NOTE HAVING DINNER , ABLE TO EAT SELF ALL NEEDS ATTENDED NOT IN DISTRESS, WILL CONT TO MONITOR
--- NOTE | 2020-03-08 19:15 | NUR ---
RN NOTE RECEIVED 74 Y/O MALE PATIENT AROUND THIS TIME. DX OF HYDROCEPHALUS, FULL CODE STATUS. S/P MEDIA ANALYST SHUNT PLACEMENT. PATIENT IS AWAKE, ALERT, CONFUSED. ABLE TO MAKE NEEDS KNOWN IN BELARUS[place]. SPEECH IS CLEAR. BREATHING IS EVEN AND UNLABORED, O2 SAT IS 96% ON ROOM AIR. NO COMPLAINTS OF PAIN AT THIS TIME. SKIN IS INTACT, DRY AND WARM TO TOUCH. NOTED SURGICAL WOUND ON RIGHT SIDE OF HEAD AND UPPER ABDOMINAL AREA. NO S/S OF INFECTION NOTED. IV SITE ON DENISE MIDLINE IS CLEAN, DRY, AND PATENT. PATIENT IS ABLE TO AMBULATE TO BATHROOM WITH ASSISTANCE. BED IS LOWERED TO LOWEST POSITION FOR SAFETY. SITTER IS NEAR BEDSIDE. CALL LIGHT IS WITHIN EASY REACH. WILL CONTINUE TO MONITOR.
[2020-03-08 20:00] VITALS: BP 141/66
[2020-03-08] MEDS: QUETIAPINE FUMARATE 25 MG TABLET PO SCH (22:44)
[2020-03-08] MEDS: ATORVASTATIN 40 MG TABLET PO SCH (22:44)
--- NOTE | 2020-03-08 22:55 | NUR ---
RN NOTE PATIENTS BLOOD SUGAR IS 439 AT THIS TIME. ADMINISTERED 10 UNITS OF INSULIN PER PROTOCOL. EMPLOYEE RELATIONS DIRECTOR MD, DR. GAMBLE, MADE AWARE. RECEIVED NEW ORDER FOR METFORMIN 500 MG PO BID. ORDERS NOTED AND CARRIED OUT.
[2020-03-08] MEDS: *INSULIN REGULAR(HUMULIN R)HUM 100 UNIT/ML VIAL SQ PRN (22:56)
[2020-03-09] VITALS: BP 139/69
[2020-03-09 04:00] VITALS: BP 143/63
--- NOTE | 2020-03-09 06:48 | NUR ---
RN NOTE PATIENT REMAINED STABLE THROUGHOUT THE NIGHT. NO SIGNIFICANT CHANGES NOTED. PATIENT KEPT CLEAN, DRY, AND COMFORTABLE. DUE MEDS GIVEN AND TOLERATED WELL. SITTER NEAR BEDSIDE. IN NO APPARENT DISTRESS NOTED AT THIS TIME. DVT PUMPS APPLIED. BED ALARM TURNED ON FOR SAFETY. CALL LIGHT IS WITHIN EASY REACH. ALL NEEDS ATTENDED AND MET. WILL ENDORSE TO AM SHIFT RN FOR CONTINUATION OF CARE.
--- NOTE | 2020-03-09 07:50 | NUR ---
RECEIVED PATIENT IN BED. NO ACUTE DISTRESS NOTED. PATIENT ALERT & ORIENTED X1-2, WITH CONFUSION. PATIENT ON DOGGY DAYCARE ACTIVITIES DIRECTOR, SINUS RHYTHM WITH 1ST DEGREE AV BLOCK NOTED. PATIENT FALL RISK NOTED. PATIENT BED ALARM ON, BED BRAKES ON, BED LOWERED, CALL LIGHT WITHIN REACH, PATIENT REMINDED TO NOT GET OUT OF BED ON OWN AND TO CALL USING CALL LIGHT, PATIENT VERBALIZED UNDERSTANDING. PATIENT DENISE MIDLINE INTACT, PATENT, FLUSHED WELL. PATIENT SAFETY MEASURES MAINTAINED. CALL LIGHT WITHIN REACH. WILL CONTINUE TO MONITOR.
[2020-03-09 08:00] VITALS: BP 124/58
[2020-03-09] MEDS: BLOOD SUGAR DIAGNOSTIC 1 EACH STRIP VI SCH ×4 (08:27→21:53)
--- NOTE | 2020-03-09 08:51 | NUR ---
GAVE REPORT TO ERNIE PALENCIA FOR CONTINUITY OF CARE
[2020-03-09] MEDS: METFORMIN 500 MG TABLET PO SCH ×2 (09:02→17:00)
[2020-03-09] MEDS: ASPIRIN EC 81 MG TABLET.DR PO SCH (09:03)
[2020-03-09] MEDS: hydrALAZINE HCL 10 MG TABLET PO SCH ×3 (09:03→16:36)
[2020-03-09] MEDS: CARVEDILOL 12.5 MG TABLET PO SCH ×2 (09:03→16:36)
[2020-03-09] MEDS: DIVALPROEX SODIUM 125 MG CAP.SPRINK PO SCH ×3 (09:03→16:36)
--- NOTE | 2020-03-09 09:20 | NUR ---
RN NOTES RECEIVED REPORT FROM ERNIE BARTHOLOMEW, PATIENT NOT IN ANY SIGNS OF DISTRESS, SAFETY MEASURES IN PLACE, WILL CONTINUE TO MONITOR.
[2020-03-09] MEDS: INSULIN REGULAR, HUMAN 100 UNIT/ML 3 ML VIAL SQ PRN ×4 (09:31→21:55)
[2020-03-09 12:00] VITALS: BP 121/66
--- NOTE | 2020-03-09 14:51 | NUR ---
RN NOTES CALLED FOR 3X NO ANSWER, LEFT MESSAGE, WILL F/U
[2020-03-09 16:00] VITALS: BP 127/72
--- NOTE | 2020-03-09 18:43 | NUR ---
RN NOTES PATIENT IN BED RESTING COMFORTABLY IN MODERATE HIGH BACK REST. A/O X3. ON RA, TOLERATING WELL. NO SIGNS OF DISTRESS NOTED THROUGHOUT THE SHIFT. IV ACCESS, PATENT AND INTACT. SAFETY MEASURES IN PLACE, BED IN LOWEST LOCKED POSITION WITH SIDE RAILS UP X2. CALL LIGHT WITHIN REACH. WILL ENDORSE TO SEE SUPERVISOR NURSE FOR LARS.
--- NOTE | 2020-03-09 19:00 | NUR ---
RN OPENING NOTES: Rec'd pt awake in bed, A&Ox3. On room air no SOB or resp distress noted at this time. Pt ambulatory w/ assist. DENISE midline patent and flushed. Dressing c/d/i. Safety measures in place. Will continue to monitor.
[2020-03-09 20:00] VITALS: BP 138/71
[2020-03-09] MEDS: ATORVASTATIN 40 MG TABLET PO SCH (21:53)
[2020-03-09] MEDS: QUETIAPINE FUMARATE 25 MG TABLET PO SCH (21:53)
[2020-03-10] VITALS: BP 130/83
[2020-03-10 04:00] VITALS: BP 120/68
--- NOTE | 2020-03-10 06:52 | NUR ---
RN CLOSING NOTES: Pt remains stable throughout shift. On room air, no SOB or resp distress noted throughout shift. No acute changes noted throughout shift. SR on tele monitor. DENISE midline patent and flushed. Dressing c/d/i. All due meds given as ordered. Kept clean/dry. Safety measures in place. Will endorse to AM nurse for LARS.
[2020-03-10] MEDS: BLOOD SUGAR DIAGNOSTIC 1 EACH STRIP VI SCH ×2 (07:30→12:27)
--- NOTE | 2020-03-10 07:30 | NUR ---
ART SUPERVISOR NOTES RECEIVED PATIENT IN BED. NO ACUTE DISTRESS NOTED. PATIENT ALERT & ORIENTED X1-2, WITH CONFUSION. PATIENT ON REPAIRING CALIBRATOR, SINUS RHYTHM WITH 1ST DEGREE AV BLOCK NOTED. PATIENT FALL RISK NOTED. PATIENT BED ALARM ON, BED BRAKES ON, BED LOWERED, CALL LIGHT WITHIN REACH, PATIENT REMINDED TO NOT GET OUT OF BED ON OWN AND TO CALL USING CALL LIGHT, PATIENT VERBALIZED UNDERSTANDING. PATIENT DENISE MIDLINE INTACT, PATENT, FLUSHED WELL. PATIENT SAFETY MEASURES MAINTAINED. CALL LIGHT WITHIN REACH. WILL CONTINUE TO MONITOR.
--- NOTE | 2020-03-10 07:30 | NUR ---
RN NOTES REFUSED ACCUCHECK
[2020-03-10 08:00] VITALS: BP 124/76
--- NOTE | 2020-03-10 09:00 | NUR ---
RN N0TES DUE MEDS GIVEN
[2020-03-10] MEDS: ASPIRIN EC 81 MG TABLET.DR PO SCH (09:23)
[2020-03-10] MEDS: METFORMIN 500 MG TABLET PO SCH (09:24)
[2020-03-10] MEDS: CARVEDILOL 12.5 MG TABLET PO SCH (09:24)
[2020-03-10] MEDS: DIVALPROEX SODIUM 125 MG CAP.SPRINK PO SCH ×2 (09:24→13:19)
[2020-03-10] MEDS: hydrALAZINE HCL 10 MG TABLET PO SCH ×2 (09:25→13:19)
[2020-03-10 12:00] VITALS: BP 130/86
--- NOTE | 2020-03-10 12:00 | NUR ---
RN NOTES ACCUCHECK DONE. BS 379 MG/DL. 15 UNITS HUM R GIVEN PER SS.
[2020-03-10 13:19] VITALS: BP 130/86
[2020-03-10] MEDS: INSULIN REGULAR, HUMAN 100 UNIT/ML 3 ML VIAL SQ PRN (13:26)
--- NOTE | 2020-03-10 14:58 | NUR ---
RN NOTES PATIENT DISCHARGED TO [facility]. PROVIDED DC INSTRUCTIONS, MED RECON LIST AND HEALTH TEACHINGS. RIGHT UPPER MIDLINE REMOVED BY COLLEAGUE GLORIA AND AZUCENA RN, NO BLEEDING, PRESSURE APPLIED FOR 10 MINUTES, DRESSING IN PLACE. BELONGINGS CHECKED AND RETURNED, ALL PAPERWORKS SIGNED. CALLED IN REPORT TO FACILITY STAFF BETO AT 1337. AMBULANCE SENIOR MECHANICAL PROJECT ENGINEER AT ETA AT 1400. STABLE CONDITION.
== END 2020-03-10 14:47 | DRG 57 ==
LOC: TELE1 19:18
PROVIDERS: ADMIT Internal Medicine; ATTEND Internal Medicine
DX: G91.9 Hydrocephalus, unspecified (principal); E44.0 Moderate protein-calorie malnutrition; G93.49 Other encephalopathy; E11.9 Type 2 diabetes mellitus without complications; I25.10 Atherosclerotic heart disease of native coronary artery without angina pectoris; Z86.73 Personal history of transient ischemic attack (TIA), and cerebral infarction without residual deficits; I10 Essential (primary) hypertension; E78.5 Hyperlipidemia, unspecified; F31.9 Bipolar disorder, unspecified; Z98.2 Presence of cerebrospinal fluid drainage device; Z91.19 Patient's noncompliance with other medical treatment and regimen; Z91.14 Patient's other noncompliance with medication regimen; Z83.3 Family history of diabetes mellitus; F25.0 Schizoaffective disorder, bipolar type; Z79.899 Other long term (current) drug therapy; Z73.6 Limitation of activities due to disability
CPT/HCPCS: 36415; 80048-TC; 82962-TC; 83735-TC; 84100-TC; 85025-TC; 87081-TC; 97116-TC; 97530-TC; G0378; J1815

== ENCOUNTER 2020-04-12 20:39 | Inpatient (IN) | payer MEDICARE, OTHER ==
[~2020-04-12] VITALS: Ht 170.2 cm; Wt 81.6 kg
--- NOTE | 2020-04-12 20:45 | NUR ---
[id number] FROM HOME S/P [facility]. PER RA, FOUND BY NEIGHBOR ON FLOOR OUTSIDE. pt reported of bs>400 on scene. PT CURRENTLY A. OX3. BREATHING EVENLY. DENIED DRINKING ALCOHOL, DENID ANY PAIN. + DIZZINESS. PT WAS PLACED ON A MONITOR. VSS. WILL CONT TO MONITOR ,
[2020-04-12] MEDS ORDERED: IV NS 0.9% 500 ML BAG IV ONE (21:00)
[2020-04-12 21:34] LABS: BASOPHILS % (AUTO) 0.4 % (0.0-2.0); EOSINOPHILS % (AUTO) 2.1 % (0.0-6.0); HEMATOCRIT 45 % (39-51); HEMOGLOBIN 14.8 g/dL (13.5-17.5); LYMPHOCYTES # (AUTO) 1.1 /CMM (0.8-4.8); LYMPHOCYTES % (AUTO) 23.5 % (20.0-44.0); MEAN CORPUSCULAR HGB CONC 33 g/dl (31.0-36.0); MEAN CORPUSCULAR VOLUME 91 fL (80-96); MONOCYTES # (AUTO) 0.5 /CMM (0.1-1.30); MONOCYTES % (AUTO) 10.2 % (2.0-12.0); NEUTROPHILS % (AUTO) 63.8 % (43.0-81.0); PLATELET COUNT (AUTO) 180 /CMM (150-450); RED BLOOD CELL COUNT(AUTO) 4.93 MIL/uL (4.5-6.0); WHITE BLOOD COUNT (AUTO) 4.7 K/uL (4.3-11.0)
--- NOTE | 2020-04-12 22:16 | NUR ---
CALL FROM LAB. RAPID COVID NEGATIVE.
--- NOTE | 2020-04-12 22:30 | NUR ---
CALLED NURSING SUP FOR TELE BED.
--- NOTE | 2020-04-12 22:39 | NUR ---
PT PULLED OUT HIS IV LINE ACCIDENTALLY. NEW IV LINE STARTED ON LAC 20G, WITH GOOD BLOOD DRAW
[2020-04-12 22:47] LABS: ALBUMIN 3.4 g/dL (3.4-5.0); ALKALINE PHOSPHATASE 102 U/L (46-116); BILIRUBIN,DIRECT 0.3 mg/dL (0.0-0.2); BILIRUBIN,TOTAL 0.7 mg/dL (0.2-1.0); CARBON DIOXIDE 21 mmol/L (21-32); CHLORIDE 94 mmol/L (98-107); CREATININE 1.1 mg/dL (0.6-1.3); POTASSIUM 4.5 mmol/L (3.5-5.1); SODIUM SERUM 130 mmol/L (136-145); TOTAL PROTEIN, SERUM 7.2 g/dL (6.4-8.2); UREA NITROGEN, BLOOD 21 mg/dL (7-18)
--- NOTE | 2020-04-12 22:52 | NUR ---
GLUCOSE 490
[2020-04-12 22:54] LABS: ALANINE AMINOTRANSFERASE 20 U/L (12-78); ASPARTATE AMINOTRANSFERASE 12 U/L (15-37); GLUCOSE 490 mg/dL (74-106)
--- NOTE | 2020-04-12 22:56 | NUR ---
SPOKE TO LUIS ALBERTO WILLAMS REGARDING BG 490.
[2020-04-12] MEDS ORDERED: ACETAMINOPHEN 325 MG TABLET PO PRN (23:30)
[2020-04-12] MEDS ORDERED: Z GUARD REMEDY 2 OZ OINT TP PRN (23:30)
[2020-04-12] MEDS ORDERED: TEMAZEPAM 15 MG CAPSULE PO PRN (23:30)
[2020-04-12] MEDS ORDERED: INSULIN REGULAR, HUMAN 100 UNIT/ML 10 ML VIAL IV ONE (23:30)
[2020-04-12] MEDS ORDERED: DEXTROSE 50%-WATER 50 ML DISP.SYRIN IV PRN (23:30)
[2020-04-12] MEDS ORDERED: MAGNESIUM HYDROXIDE 30 ML UDC PO PRN (23:30)
[2020-04-12] MEDS ORDERED: HYDROCODONE/APAP 5/325MG TABLET PO PRN (23:30)
[2020-04-12] MEDS ORDERED: ONDANSETRON HCL/PF 4 MG/2 ML VIAL IVP PRN (23:30)
[2020-04-12] MEDS ORDERED: MORPHINE SULFATE INJ 2 MG/ML DISP.SYRIN IV PRN (23:30)
[2020-04-12] MEDS ORDERED: MAG HYDROX/AL HYDROX/SIMETH 30 ML UDC PO PRN (23:30)
[2020-04-13] VITALS: BP 148/78
[2020-04-13] MEDS ORDERED: LORAZEPAM INJ 2 MG/ML VIAL IV ONE
--- NOTE | 2020-04-13 | NUR ---
"RN NOTE | ADMISSION RECEIVED PT FROM ER VIA GURNEY ACCOMPANIED BY 1 ER STAFF AND TRANSFERRED TO BED VIA 2 PERSON ASSIST. PT IS ALERT AND ORIENTED X 2-3. PT ON ROOM AIR WITH RESPIRATIONS EVEN AND UNLABORED.NOTED IV SITE ON L HAND #20 ;PATENT, INTACT AND FLUSHING WELLNO S/S OF INFECTION OR INFILTRATION. WILL START IV FLUID ORDERED.PT ON CONSISTENT CARB DIET. COMPREHENSIVE PHYSICAL/SKIN ASSESSMENT DONE. CALL LIGHT WITHIN REACH, SAFETY MEASURES IN PLACE, WILL CONTINUE MONITOR AND ASSESS THROUGHOUT THE SHIFT. WILL CARRY OUT MD ORDERS ACCORDINGLY."
--- NOTE | 2020-04-13 00:03 | NUR ---
a new iv line started on L wrist 20g , Enoch FUTURES TRADER made aware of patient's status w/ a new order for ativan IV given. report given to Kg and pt was transferred to [facility] under ACLS.
[2020-04-13] MEDS ORDERED: LORAZEPAM INJ 2 MG/ML VIAL ONE (00:06)
[2020-04-13] MEDS: IV NS 0.9% 1,000 ML IV PRN (00:37)
[2020-04-13] MEDS: ENOXAPARIN SODIUM 30 MG/0.3 ML DISP.SYRIN SQ SCH ×2 (00:49→22:00)
--- NOTE | 2020-04-13 02:00 | NUR ---
RN NOTES NO NOTED CHANGES TO PATIENT CONDITION/STATUS. RUG SIZER MADE AWARE. WILL CONTINUE TO MONITOR AND REASSESS FOR ANY CHANGES THROUGHOUT THE SHIFT.
[2020-04-13 04:00] VITALS: BP 140/75
--- NOTE | 2020-04-13 04:00 | NUR ---
RN NOTES NO CHANGE IN PATIENT CONDITION AT THIS TIME PATIENT VITALS STABLE, NO SIGNS OF ACUTE RESPIRATORY DISTRESS. DIALYSIS BIOMED TECHNICIAN MADE AWARE. WILL CONTINUE TO MONITOR AND REASSESS FOR ANY CHANGES THROUGHOUT THE SHIFT.
[2020-04-13 06:46] LABS: BASOPHILS % (AUTO) 0.6 % (0.0-2.0); EOSINOPHILS % (AUTO) 2.3 % (0.0-6.0); HEMATOCRIT 47 % (39-51); HEMOGLOBIN 15.5 g/dL (13.5-17.5); LYMPHOCYTES # (AUTO) 1.1 /CMM (0.8-4.8); MEAN CORPUSCULAR HGB CONC 33 g/dl (31.0-36.0); MEAN CORPUSCULAR VOLUME 92 fL (80-96); MONOCYTES # (AUTO) 0.5 /CMM (0.1-1.30); MONOCYTES % (AUTO) 11.8 % (2.0-12.0); NEUTROPHILS # (AUTO) 2.7 /CMM (1.8-8.9); NEUTROPHILS % (AUTO) 61.3 % (43.0-81.0); PLATELET COUNT (AUTO) 172 /CMM (150-450); RED BLOOD CELL COUNT(AUTO) 5.16 MIL/uL (4.5-6.0); WHITE BLOOD COUNT (AUTO) 4.4 K/uL (4.3-11.0)
--- NOTE | 2020-04-13 06:47 | NUR ---
RN CLOSING NOTES PATIENT REMAINS IN ROOM IN NO SIGNS OF RESPIRATORY DISTRESS. PATIENT SATURATING 98% OF 02. VITAL SIGNS WNL. IV LINE MAINTAINED, INTACT, PATENT AND FLUSHING, NO SITE REDNESS OR INFILTRATION. SAFETY PRECAUTIONS IN PLACE AND COMFORT MEASURES RENDERED. BED IN LOWEST POSITION, CALL LIGHT WITHIN REACH, BREAKS ON, SIDE RAILS UP. ALL NEEDS ATTENDED, MEDICATIONS GIVEN SCHEDULED AND ORDERED ; SHIFT ASSESSMENT/BEDBATH/SKIN CARE DONE. PATIENT KEPT CLEAN AND DRY. WILL ENDORSE TO INCOMING SHIFT FOR LARS WITH ALL PERTINENT INFO REGARDING PATIENT STATUS.
[2020-04-13 07:24] LABS: CALCIUM, SERUM 8.2 mg/dL (8.5-10.1); CREATININE 0.8 mg/dL (0.6-1.3); MAGNESIUM 2.2 mg/dL (1.8-2.4); PHOSPHORUS 2.8 mg/dL (2.5-4.9)
[2020-04-13 08:00] VITALS: BP_SYST 134; BP_SYST 145; BP_SYST 149; BP_DIAS 61; BP_DIAS 66; BP_DIAS 67
--- NOTE | 2020-04-13 08:00 | NUR ---
MACHINE MADE SHOE UNIT WORKER AM NOTES RECEIVED PT RESTING IN BED COMFORTABLY. PT A/OX3 WITH PERIODS OF CONFUSION. PT BP OF 145/62 NOTED AND DIOVAN 80MG PO TO BE GIVEN PER ORDERS. ALL OTHER VITAL SIGNS WNL. PT BREATHING IS EVEN AND UNLABORED, ON RA SAT OF 98%. PT STATES 0/10 PAIN. PT IS AMBULATORY WITH ASSIST, BUT IS FALL RISK- BED ALARM IN PLACE. PT HAS BILATERAL GROIN REDNESS. PT #20 GAUGE IN LT HAND PATENT AND INFUSING NS AT 75ML/HR. LT HAND IV WRAPPED IN KRILLEX D/T HAVING PULLED OUT IV 3X DURING DIRECTOR OF OCCUPATIONAL THERAPY. PT SAFETY PRECAUTION IN PLACE- SIDE RAILS X2, BED IN LOWEST POSITION, CALL ROBERTSON WITHIN REACH. WILL CONTINUE TO MONITOR
[2020-04-13] MEDS: PANTOPRAZOLE 40 MG TABLET.DR PO SCH (08:51)
[2020-04-13] MEDS: BLOOD SUGAR DIAGNOSTIC 1 EACH STRIP VI SCH ×4 (08:51→22:00)
[2020-04-13] MEDS: ASPIRIN EC 81 MG TABLET.DR PO SCH (08:53)
[2020-04-13] MEDS: DIVALPROEX SODIUM 125 MG CAP.SPRINK PO SCH ×3 (08:53→17:06)
[2020-04-13] MEDS: hydrALAZINE HCL 10 MG TABLET PO SCH ×3 (08:53→17:06)
[2020-04-13] MEDS: VALSARTAN 80 MG TABLET PO SCH (08:53)
[2020-04-13] MEDS: INSULIN REGULAR, HUMAN 100 UNIT/ML 3 ML VIAL SQ PRN ×3 (08:55→17:04)
[2020-04-13 12:00] VITALS: BP 128/72
--- NOTE | 2020-04-13 12:00 | NUR ---
MEHRDAD RN NURSE NOTE PT BEGAN TO PULL OUT HIS IV LINE AND AFTER SEVERAL ATTEMPTS OF TRYING TO PULL OUT HIS LINE WE WERE UNABLE TO CONTINUE HIS IV FLUIDS IN SPITE OF EXPLAINING TO PT THE RISKS, AND BENEFITS OF MAINTAINING THE IV LINE INTACT. PT NONCOMPLIANT AND IRRITABLE. PT WAS SPILLING URINE ON THE FLOOR FROM THE URINAL, SCREAMING, AND VOIDING ON THE FLOOR. Addendum: 04/13/20 at 1824 by ISRRAEL TOPETE RN MEHRDAD RN NOTE PT KEPT TAKING OFF HIS PETROLEUM SUPPLY SPECIALIST X3 AND REFUSED KEEP IT ON HIM. PT WAS EDUCATED ON THE RISKS OF NOT HAVING HIS TELEMONITOR CONNECTED AND THE IMPORTANCE OF HAVING IT CONNECTED. PT STILL REFUSED. NOTIFIED.
[2020-04-13] MEDS: *INSULIN REGULAR(HUMULIN R)HUM 100 UNIT/ML VIAL SQ PRN (12:39)
--- NOTE | 2020-04-13 13:20 | NUR ---
Retort Or Condenser Press Operator received a call from Nikko from [facility] . Per Nikko, [facility] will not bring the patient back on their service. SW to inform Case Management team about this call.
[2020-04-13 16:00] VITALS: BP 145/72
--- NOTE | 2020-04-13 18:00 | NUR ---
MEHRDAD RN NOTE PT CONTINUES TO REFUSE BOTH IV FLUIDS AND TELEMONITOR AFTER RE-EDUCATION ON THE RISKS AND BENEFITS OF EACH.
--- NOTE | 2020-04-13 18:30 | NUR ---
MEHRDAD RN NOTE PT COMFORTABLY SEMI-HERNANDEZ'S. IN BED. PT VITALS STABLE, PT BREATHING UNLABORED. PT DENIES PAIN, DENIES DIZZINESS. PT SAFETY PRECAUTIONS IN PLACE: SIDERAILS X2, BED ALARM ON, BED IN LOWEST POSITION, PT CALL ROBERTSON WITHIN REACH. WILL CONTINUE TO MONITOR.
--- NOTE | 2020-04-13 19:30 | NUR ---
RN NOTE RECEIVED PATIENT IN BED, AO X 2-3, SITTER AT BEDSIDE. PATIENT IN NO S/SX OF ACUTE DISTRESS AT THIS TIME. NO SOB NOTED. PATIENT'S BREATHING IS EVEN AND UNLABORED, SATURATING AT 97% ON ROOM AIR. PATIENT REFUSED TELEMONITOR LEADS TO BE PUT ON. OFFERED AND EXPLAINED IMPORTANCE OF TELE MONITORING, BUT STILL REFUSES. NOTED IV SITE AT L HAND G20, PATENT AND FLUSHING WELL, NO S/S OF INFECTION OR INFILTRATION. HOWEVER, PATIENT REFUSES IV FLUIDS WELL, ENDORSED BY AM SHIFT RN. EXPLAINED IMPORTANCE OF IV FLUIDS TO HIS CURRENT CONDITION, BUT STILL REFUSED. PATIENT IS AMBULATORY, ON BRP WITH ASSIST. SAFETY MEASURES IMPLEMENTED PER PROTOCOL. PATIENT BED ALARM IS ON. HEAD OF BED ELEVATED. BED IS LOCKED, IN LOWEST POSITION AND SIDE RAILS UP. CALL LIGHT WITHIN REACH OF THE PATIENT. WILL CONTINUE TO MONITOR AND REASSESS FOR ANY CHANGES.
[2020-04-13 20:00] VITALS: BP 123/62
[2020-04-13] MEDS: QUETIAPINE FUMARATE 25 MG TABLET PO SCH ×2 (21:00→21:59)
--- NOTE | 2020-04-13 21:30 | NUR ---
RN NOTE PATIENT REFUSED EVENING MEDICATIONS, INCLUDING ACCUCHECK AT 2200, STATING THEY ARE POISON. REORIENTED PATIENT AND EXPLAINED IMPORTANCE OF FOLLOWING TREATMENT REGIMEN. PATIENT STILL REFUSED AND TOLD RN TO STAY AWAY. PATIENT HAS BEEN INTERMITTENTLY AWAKE. CERTIFIED MEDICAL ASST MADE AWARE.
[2020-04-13] MEDS: ATORVASTATIN 40 MG TABLET PO SCH ×2 (21:59→22:00)
[2020-04-14] VITALS: BP 125/77
[2020-04-14] MEDS: IV NS 0.9% 1,000 ML IV PRN (02:47)
[2020-04-14 08:00] VITALS: BP 178/87
--- NOTE | 2020-04-14 08:17 | NUR ---
PT IN BED, AO X 2-, SITTER AT BEDSIDE. PATIENT IN NO S/S OF ACUTE DISTRESS AT THIS TIME. NO SOB NOTED. PATIENT'S BREATHING IS EVEN AND UNLABORED, SATURATING AT 97% ON ROOM AIR. PATIENT REFUSED TELEMONITOR LEADS TO BE PUT ON. OFFERED AND EXPLAINED IMPORTANCE OF TELE MONITORING, BUT STILL REFUSES. NOTED IV SITE AT L HAND G20, PATENT AND FLUSHING WELL, NO S/S OF INFECTION OR INFILTRATION. PT IS AMBULATORY, ON BRP WITH ASSIST. SAFETY MEASURES IMPLEMENTED PER PROTOCOL. PATIENT BED ALARM IS ON. HEAD OF BED ELEVATED. BED IS LOCKED, IN LOWEST POSITION AND SIDE RAILS UP. CALL LIGHT WITHIN REACH OF THE PATIENT. WILL CONTINUE TO MONITOR AND REASSESS FOR ANY CHANGES. PT REFUSING MEDS BUT WILL CONTINUE TO PROVIDE EDUCATION ON IMPORTANCE AND REPORT TO MD NEEDED.
[2020-04-14] MEDS: *INSULIN REGULAR(HUMULIN R)HUM 100 UNIT/ML VIAL SQ PRN (08:32)
[2020-04-14] MEDS: PANTOPRAZOLE 40 MG TABLET.DR PO SCH (08:34)
[2020-04-14] MEDS: DIVALPROEX SODIUM 125 MG CAP.SPRINK PO SCH ×2 (08:35→12:43)
[2020-04-14] MEDS: VALSARTAN 80 MG TABLET PO SCH (08:35)
[2020-04-14] MEDS: hydrALAZINE HCL 10 MG TABLET PO SCH ×2 (08:35→12:43)
[2020-04-14] MEDS: ASPIRIN EC 81 MG TABLET.DR PO SCH (08:35)
[2020-04-14] MEDS: BLOOD SUGAR DIAGNOSTIC 1 EACH STRIP VI SCH ×2 (08:36→12:48)
[2020-04-14 09:10] LABS: BASOPHILS % (AUTO) 0.8 % (0.0-2.0); EOSINOPHILS % (AUTO) 3.5 % (0.0-6.0); HEMATOCRIT 43 % (39-51); HEMOGLOBIN 14.6 g/dL (13.5-17.5); LYMPHOCYTES # (AUTO) 0.9 /CMM (0.8-4.8); LYMPHOCYTES % (AUTO) 24.2 % (20.0-44.0); MEAN CORPUSCULAR HGB CONC 34 g/dl (31.0-36.0); MEAN CORPUSCULAR VOLUME 90 fL (80-96); MONOCYTES # (AUTO) 0.4 /CMM (0.1-1.30); NEUTROPHILS # (AUTO) 2.2 /CMM (1.8-8.9); NEUTROPHILS % (AUTO) 60.5 % (43.0-81.0); PLATELET COUNT (AUTO) 162 /CMM (150-450); RED BLOOD CELL COUNT(AUTO) 4.78 MIL/uL (4.5-6.0); WHITE BLOOD COUNT (AUTO) 3.7 K/uL (4.3-11.0)
[2020-04-14 10:30] LABS: CALCIUM, SERUM 8.3 mg/dL (8.5-10.1); CREATININE 0.9 mg/dL (0.6-1.3); MAGNESIUM 1.9 mg/dL (1.8-2.4); PHOSPHORUS 3.5 mg/dL (2.5-4.9); POTASSIUM 4.2 mmol/L (3.5-5.1)
--- NOTE | 2020-04-14 10:45 | NUR ---
RECEIVED CRITICAL LAB OF 394 BLOOD GLUCOSE. NOTIFIED. MONITORING GLUCOSE AC HS ORDERED.
[2020-04-14] MEDS ORDERED: CLONIDINE HCL 0.1 MG TABLET PO PRN (11:00)
[2020-04-14 12:00] VITALS: BP 144/71
[2020-04-14 12:43] VITALS: BP 144/71
[2020-04-14] MEDS: INSULIN REGULAR, HUMAN 100 UNIT/ML 3 ML VIAL SQ PRN (12:47)
--- NOTE | 2020-04-14 14:31 | NUR ---
PT DC TO PRIVATE VEHICLE WITH PRODUCE ASSISTANT RYLAN. IV REMOVED NO SIGNS OF BLEEDING. ALL BELONGINGS BROUGHT WITH PATIENT. DENIED QUESTIONS OR CONCERNS.
== END 2020-04-14 14:31 | disposition hospice, home (50) | DRG 640 ==
LOC: ER 20:43 → TELE1 23:18
PROVIDERS: ADMIT Nurse Practitioner Acute Care; ATTEND Internal Medicine
DX: E86.1 Hypovolemia (principal); N17.0 Acute kidney failure with tubular necrosis; G93.40 Encephalopathy, unspecified; E44.0 Moderate protein-calorie malnutrition; G91.9 Hydrocephalus, unspecified; E22.2 Syndrome of inappropriate secretion of antidiuretic hormone; I25.10 Atherosclerotic heart disease of native coronary artery without angina pectoris; Z98.2 Presence of cerebrospinal fluid drainage device; Z68.28 Body mass index [BMI] 28.0-28.9, adult; I25.2 Old myocardial infarction; F25.9 Schizoaffective disorder, unspecified; Z91.19 Patient's noncompliance with other medical treatment and regimen; Z79.4 Long term (current) use of insulin; Z79.899 Other long term (current) drug therapy; E11.65 Type 2 diabetes mellitus with hyperglycemia; I10 Essential (primary) hypertension; E11.51 Type 2 diabetes mellitus with diabetic peripheral angiopathy without gangrene; E78.5 Hyperlipidemia, unspecified; F31.9 Bipolar disorder, unspecified; Z83.3 Family history of diabetes mellitus; Z86.73 Personal history of transient ischemic attack (TIA), and cerebral infarction without residual deficits
CPT/HCPCS: 36415; 70450-TC; 71045-TC; 80048-TC; 80061-TC; 80076-TC; 82962-TC; 83735-TC; 84100-TC; 84484-TC; 85025-TC; 85730-TC; 87081-TC; 97116-TC; 97530-TC; C9803; G0378; J1650; J1815; J2060; J7030; J7040